=== PATIENT | female | born 1985 | race Two or more races ===

== ENCOUNTER → 2022-07-08 10:55 | Outpatient (BNVA) | payer OTHER, SELFPAY | PROVIDERS: PCP Internal Medicine; Visit Provider Internal Medicine Rheumatology | DX: M79.7 Fibromyalgia (principal); R20.2 Paresthesia of skin | CPT/HCPCS: 99212 ==

== ENCOUNTER 2023-03-30 18:24 | Inpatient (IN) | payer OTHER, SELFPAY ==
[2023-03-30 18:10] VITALS: BP 133/93; PULSE 99; RESP 16; TEMP 36.2
--- NOTE | 2023-03-30 19:18 | PC.ADMIT ---
Addendum entered by Dina Franco RN 03/30/23 19:28: PT does report a recent weight loss of approx 30 pounds due to anxiety and lack of appetite. PT reports being on Lexapro but hasn't taken it in about a month. Original Note: PT is a 37 year old female that arrived on this unit at 1810 from [facility] and was placed on 15 minute checks. Legal status: conditional voluntary. PT presented to [facility] ED for increased paranoia and non-sensible thinking. PT believes her IPAD and Iphone were hacked and people are tracking and following her. She was recently found to be on her neighbors deck at 7am and reported she thought she was at a work meeting. PT has a hx of DAVIE (opiates and cocaine) and per assessment has been in recovery for 5 years but admits to recent use of cocaine and THC which were both detected in her urine screen. PT reports no hx of psych admissions. Per assessment, pt was attending [facility] up until the summer. PT reports she is employed and has a good support system including her mother and step father with whom she resides and housing is stable. PT denies a smoking hx and refuses the flu vaccine. PT denies SI/HI AH/VH. Safe on unit.
[2023-03-31 06:00] VITALS: BP 135/93; PULSE 97; RESP 16; TEMP 36.3; O2SAT 95
[2023-03-31 08:38] LABS: Estimated Average Glucose 94 mg/dL; Hemoglobin A1c % 4.9 % (<6.0)
[2023-03-31] MEDS: hydrOXYzine HCL 25 MG TABLET PO ×2 (08:45→16:50)
[2023-03-31 08:55] LABS: Alanine Aminotransferase 11 U/L (0-31); Albumin Level 4.3 g/dL (3.5-5.0); Alkaline Phosphatase 111 U/L (39-117); Anion Gap 13 (12-20); Aspartate Amino Transferase 19 U/L (5-31); Bilirubin Total 0.4 mg/dL (0.0-1.0); Blood Urea Nitrogen 17 mg/dL (9-16); Calcium 9.9 mg/dL (8.4-10.2); Carbon Dioxide 26 mmol/L (22-29); Chloride 106 mmol/L (96-108); Cholesterol 242 mg/dL (<200); Estimated Glomerular Filt Rate > 60; Glucose Fasting 97 mg/dL (60-99); HDL Cholesterol 81 mg/dL (>40); LDL Cholesterol Calculated 146 mg/dL (<100); Magnesium 2.4 mg/dL (1.6-2.6); Potassium 4.7 mmol/L (3.3-5.1); Sodium 140 mmol/L (135-145); Total Protein 8.2 g/dL (6.5-8.0); Triglycerides 77 mg/dL (<150)
[2023-03-31 09:04] LABS: Free T4 (Free Thyroxine) 0.83 ng/dL (0.71-1.85); Thyroid Stimulating Hormone 1.04 uIU/mL (0.32-4.0)
[2023-03-31 09:21] LABS: Folate 9.4 ng/mL (> or = 4.0); Vitamin B12 866 pg/mL (200-900)
--- NOTE | 2023-03-31 09:53 | P.HPPS_ITS ---
HPI Date of Service: 03/31/23 Chief Complaint: Unspecified Schizophrenia Spectrum Sources of Information: patient interviewed, chart reviewed and crisis/core team assessment reviewed HPI Subjective Notes: Buck Warning and Conditional Voluntary Narrative: P atient?is?a?37-year-old?female?with?history?of?mild?depression/anxiety,?opioid?a nd?cocaine?abuse?who?presents?with?paranoid D elusions?and?the?face?of?1st?time?manic?episode.??Patient?reports?that?for?the?p ast?several?weeks?she?has?been?worried?about H er?iPhone?iPad?being?hacked?and?being?followed?by?unknown?people.??Patient?has?b een?thinking?she?is?getting?messages V ia?span?emails,?telling?her?to?get?out?of?the?house,?someone?following?her;?dante ent?has?been?worried?that?she?is?being?followed?as?she?drives A nd?that?people?pulling?him?next?to?her?are?staring?at?her,?and?some?how?a?part?o f?this.??At?1?point?patient?was?driving?her?car?and?thought?perhaps?someone W as?hiding?in?her?trunk.??Patient?was?at?her?house?and?feeling?she?was?being?warn ed?to?get?out?of?her?house,?walked?up?the?street, S at?on?a?neighbor's?property?who?called?911.??Patient?reports?that?about?3?weeks? ago?she?was?started?on?Lexapro?which?was?increased?to?20?mg Which?she?abruptly?stopped?which?coincided with?the?onset?of?manic?episode;?symptoms?included?little?need?for?sleep, S ignificantly?increased?libido,?racing?mind,?paranoid?thinking,?auditory?hallucin ations,?getting?messages?from?the?TV,?increased?risky Behavior (started?doing?cocaine?at?least?every?other?day?were?formally?was?only?intermitt ently?using?on?the?weekends).??Patient?says S he?slept?for?the?1st?time?last?night?and?that?this?manic?episode?seems?to?be?win ding?down.??She?said?recently?she?started?to?question A bility?to?discern?what?was?real?verse?delusional?and?began?realizing?she?was?in? fact?paranoid.??Denies?history?of?trauma.??No?SI/HI Past Psychiatric History: No?past?psychiatric?admission No?history?of?suicidality,?attempts Has?been?started?on?several?different?SSRI trials?but?only?took?for?a?week?or?not?at?all Medical Evaluation Reviewed: Hospitalist [facility] Medical History (Updated 04/01/23 @ 00:46 by Dipesh Bañuelos MD) Cocaine use disorder Cervical intraepithelial neoplasia grade 3 Narcotic addiction Chronic headaches Snoring Surgical History H/O LEEP Family History: sister: depression/anxiety Social History: Lives?with?her?mother?and?boyfriend 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 Substance History: H istory?of?opiate?addiction/dependence;?sober?for?5?years?while?on?methadone.??Go t?off?methadone?this?past?summer? History?of?daily?alcoholism;?been?sober?for?year,?drinking?only?seldomly S tarted?dabbling?with?cocaine?this?past?summer?on?the?weekends;?about?3?weeks?ago ?increased?to? every other day Trauma History: denies Diagnostics Vital Signs (24Hr): Vital Signs - 24 hr 03/30/23 18:10 03/31/23 06:00 Temperature 97.1 F 97.4 F Pulse Rate 99 97 Respiratory Rate 16 16 Blood Pressure 133/93 H 135/93 H Pulse Oximetry 95 Oxygen Delivery Method Room Air Labs 03/31/23 08:15 Labs: Laboratory Results - last 48 hr 03/31/23 03/31/23 08:15 08:16 Sodium 140 Potassium 4.7 Chloride 106 Carbon Dioxide 26 Anion Gap 13 BUN 17 H Creatinine 0.80 Estim Creat Clear Calc TNP Estimated GFR > 60 Fasting Glucose 97 Estimat Average Glucose 94 Hemoglobin A1c % 4.9 Calcium 9.9 Magnesium 2.4 Total Bilirubin 0.4 AST 19 ALT 11 Alkaline Phosphatase 111 Total Protein 8.2 H Albumin 4.3 Triglycerides 77 Cholesterol 242 H LDL Cholesterol, Calc 146 H HDL Cholesterol 81 Vitamin B12 866 Folate 9.4 TSH 1.04 Free T4 0.83 Meds/Allergies Meds Home Medications Medication Instructions Recorded Confirmed Type escitalopram oxalate 20 mg tablet 20 mg PO DAILY 03/30/23 03/30/23 History Allergies Allergies Allergy/AdvReac Type Severity Reaction Status Date / Time No Known Allergies Allergy Verified 07/08/22 11:03 Mental Status Exam Mental Status Exam Narrative: Pt is alert and oriented; behavior is hypomanic, cooperative, friendly and calm; patient is not in distress; dressed in hospital attire with unkempt hair but adequate hygiene; mood is described as good and affect exhuberent; eye contact appropriate; Speech little pressured, little loud; normal prosody; no psychomotor agitation/retardation present; thought process is organized and goal directed; Thought content is on trying to distinguish whats real from paranoia; tx; otherwise pertinent to relevant topics; some dissipating delusional, paranoid ideations; denies any SI/HI. There is no evidence of perceptual disturbance. Patients insight and judgment impaired. Assessment & Plan Assessment & Plan (1) Bipolar I disorder: Status: Acute Code(s): F31.9 - Bipolar disorder, unspecified (2) Cocaine use disorder: Status: Acute Code(s): F14.10 - Cocaine abuse, uncomplicated Plan P atient?is?a?37-year-old?female?with?history?of?mild?depression/anxiety,?opioid?a nd?cocaine?abuse?who?presents?with?paranoid Delusions?and?the?face?of?1st?time?manic?episode.? -discussed dx and pt agrees she has bipolar disorder; becoming more clear about delusions; discussed tx options - episode?seems?to?have?been?triggered?by?starting?Lexapro;?symptoms?worsened?by?c ocaine?abuse - 1st?ever?florid?manic?episode;?however?according?to?mother,?seems?to?be?history? of?shorter,?very?mild?episode -symptoms starting to subside, slept well last night; becoming more clear minding PLAN CV Q?15?minute?checks? Start?lithium?600?mg?q.h.s. Regarding [place], Risks, side-effects and benefits reviewed with pt, including, but not limited to, damage to kidneys and thyroid; pt was educated to stay hydrated, to watch for symptoms of lithium toxicity (also discussed, including but not limited to nausea, tremor, confusion) and the need to stay away from OTC NSAIDs (specifics reviewed) aside from Tylenol. Patient educated on: diagnosis, medication risk/benefits, substance abuse and therapeutic strategies Informed Consent: understands Reason for continued inpatient stay Substantial Risk for: rapid decompensation Statement Statement: I have reviewed the history and physical and performed a pertinent examination on my patient. No changes have occurred unless specified. If the History and Physical was not performed prior to admission, the Hospitalist's service will be consulted for completing the admission physical. Time Spent With Patient Time: Total time managing care of this patient today ____ minutes.
[2023-03-31] MEDS: Lithium Carbonate ER 300 MG TABLET.ER PO ×2 (16:49→20:20)
--- NOTE | 2023-03-31 17:23 | P.CONHOSP_ITS ---
History of Present Illness Data of Consult Service Date: 03/31/23 Primary Care Provider: Unknown Physician HPI Reason for consult: Admission H&P Pt is a 37-year-old female with a PMH significant for?opioid and cocaine use disorder, and mild depression/anxiety who is admitted to [facility] unit for paranoia and delusions in the setting of a first-time manic episode. Patient apparently had been worrying about having her electronic devices hacked and being followed around by unknown people. Medical consult for admission H&P. ?Patient has no acute medical concerns at this time. Denies fever, chills, nausea, vomiting, abdominal pain. No change to bowel or bladder habits. Denies chest pain/pressure, palpitations. No shortness of breath. Denies headache, acute vision changes. Labs reviewed, grossly unremarkable. Review of Systems 2 Review of Systems: Patient has no acute medical complaints at this time [facility] Medical History Cocaine use disorder Cervical intraepithelial neoplasia grade 3 Narcotic addiction Chronic headaches Snoring Family History Maternal Grandmother Ovarian cancer Maternal Grandfather Dementia Paternal Grandfather CAD (coronary artery disease) Paternal Aunt Rheumatoid arthritis Surgical History H/O LEEP Social History Household Members: Family Housing: House Do you presently have visiting nurse or other home services: No Alcohol intake: current Patient Tobacco Use Status: Never used Tobacco e-Cigarette/Vaping Use: Never Used Use of substances other than those prescribed or required for medical reasons: Yes Substance Use Type: Crack/Cocaine and Marijuana Substance Use Frequency: Occasionally Last Used Substance: Just Prior to Admission Currently Displaying Signs/Symptoms of Drug Intoxication Withdrawal: No Any prior treatment program specific to substance use: Yes (Methadone clinic in the past) Have you been hit, kicked, punched, or otherwise hurt by someone within the past year? If so, by whom?: No Do you feel safe in your current relationship?: No Current Relationship Is there a partner from a previous relationship who is making you feel unsafe now?: No Are you made to feel afraid or neglected: No Advance Directives: No Advance Directives Information Provided: No Do you have thoughts of harming others: None Do you have a plan to hurt others: No Plan Recently lost weight without trying: Yes How much weight loss: 34pounds or more Eating poorly because of decreased appetite: Yes Nutrition screen score: 7 Nutrition Risks: Poor intake 0-25% >4 days Patient : No : No Poor oral hygiene: No service: No Current occupational status: employed Current occupation: benefits sales consultant Sexual orientation: Straight/Heterosexual Meds Allergies Allergy/AdvReac Type Severity Reaction Status Date / Time No Known Allergies Allergy Verified 07/08/22 11:03 Active Medications: Current Medications Acetaminophen (Acetaminophen 325 Mg Tablet) 650 mg PO Q6H PRN PRN Reason: Headache/Pain Mild Scale (1-3) Al Hydroxide/Mg Hydroxide (Magnesium Hydrox/Alum Hydrox 30 Ml Oral.Susp) 30 ml PO Q6H PRN PRN Reason: Heartburn/Nausea Hydroxyzine HCl (Hydroxyzine Hcl 25 Mg Tablet) 25 mg PO Q6H PRN PRN Reason: Anxiety/insomnia Last Admin: 03/31/23 16:50 Dose: 25 mg [place] Carbonate ([place] Carbonate Er 300 Mg Tablet.Er) 300 mg PO BEDTIME SHAUNA Stop: 03/31/23 23:00 [place] Carbonate ([place] Carbonate Er 300 Mg Tablet.Er) 600 mg PO BEDTIME SHAUNA Magnesium Hydroxide (Milk Of Magnesia 30 Ml Oral.Susp) 30 ml PO DAILY PRN PRN Reason: Constipation Trazodone HCl (Trazodone Hcl 50 Mg Tablet) 50 mg PO BEDTIME MRX1 PRN PRN Reason: Insomnia Home Medications Medication Instructions Recorded Confirmed Last Taken Type escitalopram oxalate 20 mg tablet 20 mg PO DAILY 03/30/23 03/30/23 Unknown History Physical Exam 2 Vital Signs and Narrative: Vital Signs: Last Vital Signs Temp 97.4 F 03/31/23 06:00 Pulse 97 03/31/23 06:00 Resp 16 03/31/23 06:00 BP 135/93 H 03/31/23 06:00 Pulse Ox 95 03/31/23 06:00 O2 Del Method Room Air 03/31/23 06:00 Constitutional: Alert, in no acute distress. Mental Status: Oriented to person, place and time. Eyes: Pupils are equal, round, and reactive to light. Ear, Nose, and Throat: Oropharynx clear, mucous membranes moist. Ears and nose without deformities. Trachea midline. Respiratory: Clear to auscultation bilaterally. No wheezing, rales, or rhonchi. Cardiovascular: S1, S2 regular. No murmurs, rubs, or gallops. Gastrointestinal: Abdomen soft, non-tender, non-distended. Normal bowel sounds. Neurologic: Cranial nerves II-XII are grossly intact bilaterally. No focal neurological deficits. Moves all extremities spontaneously. Skin: Warm, dry. Musculoskeletal: No cyanosis or clubbing. Extremities: No edema. Results Labs 03/31/23 08:15 Labs: Laboratory Results - last 24 hr 03/31/23 03/31/23 08:15 08:16 Anion Gap 13 Estim Creat Clear Calc TNP Estimated GFR > 60 Fasting Glucose 97 Estimat Average Glucose 94 Hemoglobin A1c % 4.9 Calcium 9.9 Magnesium 2.4 Total Bilirubin 0.4 AST 19 ALT 11 Alkaline Phosphatase 111 Total Protein 8.2 H Albumin 4.3 Triglycerides 77 Cholesterol 242 H LDL Cholesterol, Calc 146 H HDL Cholesterol 81 Vitamin B12 866 Folate 9.4 TSH 1.04 Free T4 0.83 Assessment and Plan (1) Medical clearance for psychiatric admission: Status: Acute Plan Pt is a 37-year-old female with a PMH significant for?opioid and cocaine use disorder, and mild depression/anxiety who is admitted to [facility] unit for paranoia and delusions in the setting of a first-time manic episode. Patient apparently had been worrying about having her electronic devices hacked and being followed around by unknown people. Medical consult for admission H&P. ?Patient has no acute medical concerns at this time. Mood disorder Plan as per Psychiatry Patient otherwise has no chronic medical conditions or acute medical complaints. Thank you for allowing us to participate in the care of this patient. Signing off at this time. Please let us know if there are any acute complaints or questions.
[2023-03-31 18:00] VITALS: BP 134/91; PULSE 97; TEMP 35.8; O2SAT 100
[2023-04-01] MEDS: hydrOXYzine HCL 25 MG TABLET PO (06:45)
[2023-04-01 08:15] VITALS: BP 130/89; PULSE 89; RESP 16; TEMP 36.2; O2SAT 100
--- NOTE | 2023-04-01 10:07 | HO.PSYCHPN ---
Subjective Subjective Date of Service: 04/01/23 Reason For Visit: Unspecified Schizophrenia Spectrum Subjective Notes: 3 Day Interim History: Reviewed with . Pt presents friendly, cooperative, with rapid speech. Pt stated, I'm feeling good other than being anxious. I'm sleeping and eating great. I plan on going to a program for substance abuse after here . Pt requested increase in hydroxyzine. Medication Compliance: Yes Side effects from medications: No Attending Groups: Yes Review of Systems Constitutional: Reports as per HPI Eyes: Reports as per HPI Reports as per HPI Cardiovascular: Reports as per HPI Respiratory: Reports as per HPI Gastrointestinal: Reports as per HPI Genitourinary: Reports as per HPI Musculoskeletal: Reports as per HPI Skin/Breast: Reports as per HPI Reports as per HPI Psychiatric: Reports as per HPI Endocrine: Reports as per HPI Hematologic/Lymphatic: Reports as per HPI Allergic/Immunologic: Reports as per HPI Mental Status Exam Mental Status Exam Narrative: Pt is alert and oriented; behavior is cooperative, friendly; dressed in casual attire; mood is described as anxious ; eye contact appropriate; Speech is rapid; no psychomotor agitation/retardation present; thought process is organized and goal directed; Thought content is on tx; otherwise pertinent to relevant topics and without any delusional content, paranoid ideations or grandiosity; denies SI/HI. There is no evidence of perceptual disturbance. Patients insight and judgment are fair. Diagnostics Vital Signs (24Hr): Vital Signs - 24 hr 03/31/23 18:00 04/01/23 08:15 Temperature 96.4 F L 97.2 F Pulse Rate 97 89 Respiratory Rate 16 Blood Pressure 134/91 H 130/89 Pulse Oximetry 100 100 Oxygen Delivery Method Room Air Room Air Labs 03/31/23 08:15 Labs: Laboratory Results - last 48 hr 03/31/23 03/31/23 08:15 08:16 Sodium 140 Potassium 4.7 Chloride 106 Carbon Dioxide 26 Anion Gap 13 BUN 17 H Creatinine 0.80 Estim Creat Clear Calc TNP Estimated GFR > 60 Fasting Glucose 97 Estimat Average Glucose 94 Hemoglobin A1c % 4.9 Calcium 9.9 Magnesium 2.4 Total Bilirubin 0.4 AST 19 ALT 11 Alkaline Phosphatase 111 Total Protein 8.2 H Albumin 4.3 Triglycerides 77 Cholesterol 242 H LDL Cholesterol, Calc 146 H HDL Cholesterol 81 Vitamin B12 866 Folate 9.4 TSH 1.04 Free T4 0.83 Medications Medications Current Medications Acetaminophen (Acetaminophen 325 Mg Tablet) 650 mg PO Q6H PRN PRN Reason: Headache/Pain Mild Scale (1-3) Al Hydroxide/Mg Hydroxide (Magnesium Hydrox/Alum Hydrox 30 Ml Oral.Susp) 30 ml PO Q6H PRN PRN Reason: Heartburn/Nausea Hydroxyzine HCl (Hydroxyzine Hcl 25 Mg Tablet) 25 mg PO Q6H PRN PRN Reason: Anxiety/insomnia Last Admin: 04/01/23 06:45 Dose: 25 mg [place] Carbonate ([place] Carbonate Er 300 Mg Tablet.Er) 600 mg PO BEDTIME SHAUNA Magnesium Hydroxide (Milk Of Magnesia 30 Ml Oral.Susp) 30 ml PO DAILY PRN PRN Reason: Constipation Trazodone HCl (Trazodone Hcl 50 Mg Tablet) 50 mg PO BEDTIME MRX1 PRN PRN Reason: Insomnia Allergies Allergies Allergy/AdvReac Type Severity Reaction Status Date / Time No Known Allergies Allergy Verified 07/08/22 11:03 Assessment & Plan Assessment & Plan (1) Bipolar I disorder: Status: Acute Code(s): F31.9 - Bipolar disorder, unspecified (2) Cocaine use disorder: Status: Acute Code(s): F14.10 - Cocaine abuse, uncomplicated Plan Patient?is?a?37-year-old?female?with?history?of?mild?depression/anxiety,?opioid?and?cocaine?abuse?who?presents?with?paranoid Delusions?and?the?face?of?1st?time?manic?episode.? -discussed dx and pt agrees she has bipolar disorder; becoming more clear about delusions; discussed tx options -episode?seems?to?have?been?triggered?by?starting?Lexapro;?symptoms?worsened?by?cocaine?abuse -1st?ever?florid?manic?episode;?however?according?to?mother,?seems?to?be?history?of?shorter,?very?mild?episode -symptoms starting to subside, slept well last night; becoming more clear minding PLAN CV Q?15?minute?checks? Start?lithium?600?mg?q.h.s. Regarding [place], Risks, side-effects and benefits reviewed with pt, including, but not limited to, damage to kidneys and thyroid; pt was educated to stay hydrated, to watch for symptoms of lithium toxicity (also discussed, including but not limited to nausea, tremor, confusion) and the need to stay away from OTC NSAIDs (specifics reviewed) aside from Tylenol. 04/01: Pleasant, cooperative, rapid speech. Pt requested increase in hydroxyzine for her anxiety. Increased hydroxyzine to 50mg PO Q6hr PRN anxiety. Patient educated on: diagnosis, medication risk/benefits and therapeutic strategies Informed Consent: understands Reason for continued inpatient stay Substantial Risk for: med/psych decompensation Time Spent With Patient Time: Total time managing care of this patient today _30___ minutes.
[2023-04-01] MEDS: hydrOXYzine HCL 50 MG TABLET PO ×2 (13:08→20:55)
[2023-04-01] MEDS: Nicotine Polacrilex Lozenge 4 MG LOZENGE BUCCAL ×2 (14:39→18:13)
[2023-04-01 18:00] VITALS: BP 121/84; PULSE 118; TEMP 36.5; O2SAT 99
[2023-04-01] MEDS: Lithium Carbonate ER 300 MG TABLET.ER 600 MG PO (20:54)
[2023-04-01] MEDS: traZODone HCL 50 MG TABLET PO (22:03)
[2023-04-02] MEDS: traZODone HCL 50 MG TABLET PO ×3 (00:09→23:30)
[2023-04-02] MEDS: hydrOXYzine HCL 50 MG TABLET PO ×3 (08:08→21:04)
[2023-04-02 09:07] VITALS: BP 136/64; PULSE 79; RESP 16; TEMP 36.1; O2SAT 99
[2023-04-02] MEDS: Nicotine Polacrilex Lozenge 4 MG LOZENGE BUCCAL (09:11)
--- NOTE | 2023-04-02 12:05 | P.PNPSI_ITS ---
Subjective Subjective Date of Service: 04/02/23 Reason For Visit: Unspecified Schizophrenia Spectrum Subjective Notes: 3 Day Guardianship: No Medical Problems Affecting Mental Status: No Interim History: Reports some sleep disturbance. Feels this was due to stress and anxiety. States her mind was busy yesterday but less so today. Also endorsing paranoia. Has insight that this might be caused by cocaine use. Medication Compliance: Yes Side effects from medications: No Attending Groups: Intermittent Review of Systems Acute medical concerns: No Medical Review of Systems: unchanged Mental Status Exam Mental Status Exam Patient Appearance: Unkempt Patient Orientation: Person, Place, Time and Situation Level of Consciousness: Alert Patient Behavior: Appropriate Mood Description: Anxious Affect Description: Calm Patient Cognition Impaired: No Ability to Follow Directions: Excellent Speech Pattern: Clear Memory Description: Intact Hallucinations: None Delusions: Paranoid Ideation Thought Process: Linear Depressive Symptoms: Increased Anxiety Judgement: Fair Diagnostics Vital Signs (24Hr): Vital Signs - 24 hr 04/01/23 18:00 04/02/23 09:07 Temperature 97.7 F 96.9 F Pulse Rate 118 H 79 Respiratory Rate 16 Blood Pressure 121/84 136/64 Pulse Oximetry 99 99 Oxygen Delivery Method Room Air Room Air Labs 03/31/23 08:15 Medications Medications Current Medications Acetaminophen (Acetaminophen 325 Mg Tablet) 650 mg PO Q6H PRN PRN Reason: Headache/Pain Mild Scale (1-3) Al Hydroxide/Mg Hydroxide (Magnesium Hydrox/Alum Hydrox 30 Ml Oral.Susp) 30 ml PO Q6H PRN PRN Reason: Heartburn/Nausea Hydroxyzine HCl (Hydroxyzine Hcl 50 Mg Tablet) 50 mg PO Q6H PRN PRN Reason: Anxiety/insomnia Last Admin: 04/02/23 08:08 Dose: 50 mg [place] Carbonate ([place] Carbonate Er 300 Mg Tablet.Er) 600 mg PO BEDTIME SHAUNA Last Admin: 04/01/23 20:54 Dose: 600 mg Magnesium Hydroxide (Milk Of Magnesia 30 Ml Oral.Susp) 30 ml PO DAILY PRN PRN Reason: Constipation Nicotine Polacrilex (Nicotine Polacrilex Lozenge 4 Mg Lozenge) 4 mg [place] Q2H PRN PRN Reason: Nicotine Cravings Last Admin: 04/02/23 09:11 Dose: 4 mg Trazodone HCl (Trazodone Hcl 50 Mg Tablet) 50 mg PO BEDTIME MRX1 PRN PRN Reason: Insomnia Last Admin: 04/02/23 00:09 Dose: 50 mg Allergies Allergies Allergy/AdvReac Type Severity Reaction Status Date / Time No Known Allergies Allergy Verified 07/08/22 11:03 Assessment & Plan Assessment & Plan (1) Medical clearance for psychiatric admission: Status: Acute Code(s): Z00.8 - Encounter for other general examination Plan Pt is a 37-year-old female with a PMH significant for?opioid and cocaine use disorder, and mild depression/anxiety who is admitted to [facility] unit for paranoia and delusions in the setting of a first-time manic episode. Patient apparently had been worrying about having her electronic devices hacked and being followed around by unknown people. Medical consult for admission H&P. ?Patient has no acute medical concerns at this time. Mood disorder Started on [place], no changes Reason for continued inpatient stay Substantial Risk for: rapid decompensation Time Spent With Patient Time: Total time managing care of this patient today ____ minutes.
[2023-04-02 16:40] VITALS: BP 129/78; PULSE 98; RESP 16; TEMP 36.7; O2SAT 99
[2023-04-02] MEDS: Lithium Carbonate ER 300 MG TABLET.ER 600 MG PO (21:04)
[2023-04-03] MEDS: hydrOXYzine HCL 50 MG TABLET PO ×3 (06:21→20:41)
[2023-04-03] MEDS: Acetaminophen 325 MG TABLET 650 MG PO (06:21)
[2023-04-03] MEDS: Nicotine Polacrilex Lozenge 4 MG LOZENGE BUCCAL ×5 (06:22→22:41)
--- NOTE | 2023-04-03 07:02 | P.PNPSI_ITS ---
Subjective Subjective Date of Service: 04/03/23 Reason For Visit: Unspecified Schizophrenia Spectrum Subjective Notes: 3 Day Healthcare Proxy: No Guardianship: No Medical Problems Affecting Mental Status: No Interim History: Reports some initial insomnia. Eating OK. Social in the milieu. Reports mood is good but then asking for higher dose of meds for anxiety. Took several doses of atarax. No paranoid concerns. States she is preparing for my next transfer on Tuesday. Medication Compliance: Yes Side effects from medications: No Attending Groups: Intermittent Review of Systems Acute medical concerns: No Medical Review of Systems: unchanged Mental Status Exam Mental Status Exam Patient Appearance: Unkempt Patient Orientation: Person, Place, Time and Situation Level of Consciousness: Alert Patient Behavior: Appropriate Diagnostics Vital Signs (24Hr): Vital Signs - 24 hr 04/02/23 09:07 04/02/23 16:40 Temperature 96.9 F 98.1 F Pulse Rate 79 98 Respiratory Rate 16 16 Blood Pressure 136/64 129/78 Pulse Oximetry 99 99 Oxygen Delivery Method Room Air Room Air Labs 03/31/23 08:15 Medications Medications Current Medications Acetaminophen (Acetaminophen 325 Mg Tablet) 650 mg PO Q6H PRN PRN Reason: Headache/Pain Mild Scale (1-3) Last Admin: 04/03/23 06:21 Dose: 650 mg Al Hydroxide/Mg Hydroxide (Magnesium Hydrox/Alum Hydrox 30 Ml Oral.Susp) 30 ml PO Q6H PRN PRN Reason: Heartburn/Nausea Hydroxyzine HCl (Hydroxyzine Hcl 50 Mg Tablet) 50 mg PO Q6H PRN PRN Reason: Anxiety/insomnia Last Admin: 04/03/23 06:21 Dose: 50 mg [place] Carbonate ([place] Carbonate Er 300 Mg Tablet.Er) 600 mg PO BEDTIME SHAUNA Last Admin: 04/02/23 21:04 Dose: 600 mg Magnesium Hydroxide (Milk Of Magnesia 30 Ml Oral.Susp) 30 ml PO DAILY PRN PRN Reason: Constipation Nicotine Polacrilex (Nicotine Polacrilex Lozenge 4 Mg Lozenge) 4 mg BUCCAL Q2H PRN PRN Reason: Nicotine Cravings Last Admin: 04/03/23 06:22 Dose: 4 mg Trazodone HCl (Trazodone Hcl 50 Mg Tablet) 50 mg PO BEDTIME MRX1 PRN PRN Reason: Insomnia Last Admin: 04/02/23 23:30 Dose: 50 mg Allergies Allergies Allergy/AdvReac Type Severity Reaction Status Date / Time No Known Allergies Allergy Verified 07/08/22 11:03 Assessment & Plan Assessment & Plan (1) Medical clearance for psychiatric admission: Status: Acute Code(s): Z00.8 - Encounter for other general examination Plan Pt is a 37-year-old female with a PMH significant for?opioid and cocaine use disorder, and mild depression/anxiety who is admitted to [facility] for paranoia and delusions in the setting of a first-time manic episode. Patient apparently had been worrying about having her electronic devices hacked and being followed around by unknown people. Medical consult for admission H&P. ?Patient has no acute medical concerns at this time. Mood disorder Started on [place], no changes 04/03: Consider adding low dose seroquel for anxiety, insomnia and tendency to paranoia Reason for continued inpatient stay Substantial Risk for: inability to function Time Spent With Patient Time: Total time managing care of this patient today ____ minutes.
[2023-04-03 08:09] VITALS: BP 121/59; PULSE 95; RESP 16; TEMP 36.6; O2SAT 100
[2023-04-03] MEDS: guaiFENesin LA 600 MG TAB.ER.12H PO (09:35)
[2023-04-03] MEDS: Loratadine 10 MG TABLET PO (09:35)
[2023-04-03] MEDS: Sodium Chloride 0.65 % Nasal 44 ML SPRBTL 1 SPRAY NOSTRIL-B ×3 (10:37→22:10)
[2023-04-03 17:09] VITALS: BP 130/66; PULSE 100; RESP 17; TEMP 36.6; O2SAT 100
[2023-04-03] MEDS: Lithium Carbonate ER 300 MG TABLET.ER 600 MG PO (20:39)
[2023-04-03] MEDS: traZODone HCL 50 MG TABLET PO ×2 (22:05→23:38)
[2023-04-04] MEDS: Nicotine Polacrilex Lozenge 4 MG LOZENGE BUCCAL ×5 (06:10→18:50)
[2023-04-04] MEDS: hydrOXYzine HCL 50 MG TABLET PO ×3 (06:10→18:50)
[2023-04-04] MEDS: Sodium Chloride 0.65 % Nasal 44 ML SPRBTL 1 SPRAY NOSTRIL-B ×4 (08:20→18:50)
[2023-04-04] MEDS: Loratadine 10 MG TABLET PO (08:20)
[2023-04-04 08:25] VITALS: BP 121/78; PULSE 95; RESP 18; TEMP 36.6; O2SAT 100
[2023-04-04 08:37] LABS: Lithium 0.34 mmol/L (0.60-1.20)
--- NOTE | 2023-04-04 09:47 | P.PNPSI_ITS ---
Subjective Subjective Date of Service: 04/04/23 Reason For Visit: Unspecified Schizophrenia Spectrum Interim History: met with patient; discussed with team Patient reports feeling much better. Has good insight into past paranoid/delusional thinking and understands that none of this was real. Further reflection she can see there a possible mild hypomanic episodes that she thinks she probably hid under her naturally outgoing, effusive personality. Patient tolerating medication well and reports sleeping and eating well. She very much wants to go to a substance abuse program which her family is helping set up. Discussed anxiety which remains and she will try clonidine to see if that helps in addition to hydroxyzine. Patient remains engaged in treatment, attending groups, pleasant to work with and forthcoming in 1 on 1 sessions and appropriate with peers and staff, in good behavioral and impulse control. Mental Status Exam Mental Status Exam Narrative: Pt is alert and oriented; behavior is cooperative, friendly and calm; patient is not in distress; dressed in casual attire, well groomed; mood is described as good and affect congruent, appropriate, calm; eye contact appropriate; Speech normal rate, volume and prosody; no psychomotor agitation/retardation present; thought process is organized, linear and goal directed; Thought content is on treatment, understanding diagnosis, pursuing sobriety; otherwise pertinent to relevant topics; no delusional or paranoid ideations; denies any SI/HI. There is no evidence of perceptual disturbance. Patients insight and judgment good. Diagnostics Vital Signs (24Hr): Vital Signs - 24 hr 04/03/23 17:09 04/04/23 08:25 Temperature 97.8 F 97.8 F Pulse Rate 100 95 Respiratory Rate 17 18 Blood Pressure 130/66 121/78 Pulse Oximetry 100 100 Oxygen Delivery Method Room Air Room Air Labs 03/31/23 08:15 Labs: Laboratory Results - last 48 hr 04/04/23 08:17 [place] 0.34 L Medications Medications Current Medications Acetaminophen (Acetaminophen 325 Mg Tablet) 650 mg PO Q6H PRN PRN Reason: Headache/Pain Mild Scale (1-3) Last Admin: 04/03/23 06:21 Dose: 650 mg Al Hydroxide/Mg Hydroxide (Magnesium Hydrox/Alum Hydrox 30 Ml Oral.Susp) 30 ml PO Q6H PRN PRN Reason: Heartburn/Nausea Guaifenesin (Guaifenesin La 600 Mg Tab.Er.12h) 600 mg PO BID PRN PRN Reason: Congestion Last Admin: 04/03/23 09:35 Dose: 600 mg Hydroxyzine HCl (Hydroxyzine Hcl 50 Mg Tablet) 50 mg PO Q6H PRN PRN Reason: Anxiety/insomnia Last Admin: 04/04/23 06:10 Dose: 50 mg [place] Carbonate ([place] Carbonate Er 300 Mg Tablet.Er) 600 mg PO BEDTIME SHAUNA Last Admin: 04/03/23 20:39 Dose: 600 mg Loratadine (Loratadine 10 Mg Tablet) 10 mg PO DAILY SHAUNA Last Admin: 04/04/23 08:20 Dose: 10 mg Magnesium Hydroxide (Milk Of Magnesia 30 Ml Oral.Susp) 30 ml PO DAILY PRN PRN Reason: Constipation Nicotine Polacrilex (Nicotine Polacrilex Lozenge 4 Mg Lozenge) 4 mg BUCCAL Q2H PRN PRN Reason: Nicotine Cravings Last Admin: 04/04/23 08:22 Dose: 4 mg Sodium Chloride (Sodium Chloride 0.65 % Nasal 44 Ml Sprbtl) 1 spray NOSTRIL-B Q1H PRN PRN Reason: Congestion Last Admin: 04/04/23 08:20 Dose: 1 spray Trazodone HCl (Trazodone Hcl 50 Mg Tablet) 50 mg PO BEDTIME MRX1 PRN PRN Reason: Insomnia Last Admin: 04/03/23 23:38 Dose: 50 mg Allergies Allergies Allergy/AdvReac Type Severity Reaction Status Date / Time No Known Allergies Allergy Verified 07/08/22 11:03 Assessment & Plan Assessment & Plan (1) Medical clearance for psychiatric admission: Status: Acute Code(s): Z00.8 - Encounter for other general examination Plan P atient?is?a?37-year-old?female?with?history?of?mild?depression/anxiety,?opioid?a nd?cocaine?abuse?who?presents?with?paranoid Delusions?and?the?face?of?1st?time?manic?episode and cocaine abuse.? -discussed dx and pt agrees she has bipolar disorder; becoming more clear about delusions; discussed tx options - episode?seems?to?have?been?triggered?by?starting?Lexapro;?symptoms?worsened?by?c ocaine?abuse - 1st?ever?florid?manic?episode;?however?according?to?mother,?seems?to?be?history? of?shorter,?very?mild?episode -symptoms starting to subside, slept well last night; becoming more clear minding Hospital course: 04/03: Consider adding low dose seroquel for anxiety, insomnia and tendency to paranoia 04/04 Patient reports feeling much better. Has good insight into past paranoid/delusional thinking and understands that none of this was real. Further reflection she can see there a possible mild hypomanic episodes that she thinks she probably hid under her naturally outgoing, effusive personality. Patient tolerating medication well and reports sleeping and eating well. She very much wants to go to a substance abuse program which her family is helping set up. Discussed anxiety which remains and she will try clonidine to see if that helps in addition to hydroxyzine. Patient remains engaged in treatment, attending groups, pleasant to work with and forthcoming in 1 on 1 sessions and appropriate with peers and staff, in good behavioral and impulse control. PLAN CV (retracted 3 day) Q?15?minute?checks? Continue lithium?600?mg?q.h.s.; tolerating well Will reach get lithium level since blood draw was a little premature Adding clonidine p.r.n. for anxiety Will continue to help patient in pursuit of outpatient substance abuse program Reviewed medications risks/side effects which patient understands and with which agrees to continue Regarding [place], Risks, side-effects and benefits reviewed with pt, including, but not limited to, damage to kidneys and thyroid; pt was educated to stay hydrated, to watch for symptoms of lithium toxicity (also discussed, including but not limited to nausea, tremor, confusion) and the need to stay away from OTC NSAIDs (specifics reviewed) aside from Tylenol. Patient educated on: diagnosis, medication risk/benefits, substance abuse and therapeutic strategies Informed Consent: understands Reason for continued inpatient stay Substantial Risk for: stable for discharge Time Spent With Patient Time: Total time managing care of this patient today ____ minutes.
[2023-04-04] MEDS: cloNIDine HCL 0.1 MG TABLET PO ×2 (11:04→15:46)
[2023-04-04] MEDS: Nicotine 14 MG PATCH.TD24 TRANSDERMA (11:04)
[2023-04-04 15:40] VITALS: BP 121/72; PULSE 104; RESP 18; TEMP 36.8
[2023-04-04] MEDS: guaiFENesin LA 600 MG TAB.ER.12H PO (15:46)
[2023-04-04 18:00] VITALS: BP 121/72; PULSE 104; RESP 16; TEMP 36.8; O2SAT 96
[2023-04-04] MEDS: Lithium Carbonate ER 300 MG TABLET.ER 600 MG PO (20:24)
[2023-04-04] MEDS: traZODone HCL 50 MG TABLET PO ×2 (22:27→23:27)
[2023-04-04] MEDS: Magnesium Hydrox/Alum Hydrox 30 ML ORAL.SUSP PO (23:15)
[2023-04-05] MEDS: Loratadine 10 MG TABLET PO (07:56)
[2023-04-05] MEDS: Sodium Chloride 0.65 % Nasal 44 ML SPRBTL 1 SPRAY NOSTRIL-B ×2 (08:24→15:47)
[2023-04-05] MEDS: hydrOXYzine HCL 50 MG TABLET PO ×3 (08:24→23:14)
[2023-04-05] MEDS: cloNIDine HCL 0.1 MG TABLET PO (08:26)
[2023-04-05] MEDS: guaiFENesin LA 600 MG TAB.ER.12H PO (08:26)
[2023-04-05 08:45] VITALS: BP 125/87; PULSE 84; RESP 16; TEMP 36.5; O2SAT 99
[2023-04-05] MEDS: Nicotine 14 MG PATCH.TD24 TRANSDERMA (08:47)
--- NOTE | 2023-04-05 09:49 | P.PNPSI_ITS ---
Subjective Subjective Date of Service: 04/05/23 Reason For Visit: Unspecified Schizophrenia Spectrum Interim History: met with pt; discussed with team Patient reports doing overall well. Continues to have anxiety and not sure that clonidine is helping that much; also not sure if trazodone is helping that much. Discussed lithium and subtherapeutic level. Given continued anxiety and some trouble sleeping, patient agreed to increase it to 900 mg. If she still can not sleep she will try increased dose of trazodone. Patient shared some of the struggles she has at home, feeling that everyone is always talking about her problems, that is the main topic of conversation all the time and that he gets overwhelming and can be belittling. No one else has to sit at a table where everyone talks about just their problems over and over... That said, she knows her family loves her and is concerned and anxious about her overcoming addiction, even if sometimes they can be misinformed on how to be helpful. Patient very much hoping to get into longer term program substance abuse and discussed options. Remains very engaged in treatment, forthcoming in 1 on 1 sessions, attending groups, appropriate with peers and staff and in good behavioral and impulse control. Mental Status Exam Mental Status Exam Narrative: Pt is alert and oriented; behavior is cooperative, friendly and calm; patient is not in distress; dressed in casual attire, well groomed; mood is described as good and affect congruent, appropriate, calm; eye contact appropriate; Speech normal rate, volume and prosody; no psychomotor agitation/retardation present; thought process is organized, linear and goal directed; Thought content is on treatment, understanding diagnosis, pursuing sobriety; otherwise pertinent to relevant topics; no delusional or paranoid ideations; denies any SI/HI. There is no evidence of perceptual disturbance. Patients insight and judgment good. Diagnostics Vital Signs (24Hr): Vital Signs - 24 hr 04/04/23 15:40 04/04/23 18:00 04/05/23 08:45 Temperature 98.3 F 98.3 F 97.7 F Pulse Rate 104 H 104 H 84 Respiratory Rate 18 16 16 Blood Pressure 121/72 121/72 125/87 Pulse Oximetry 96 99 Oxygen Delivery Method Room Air Room Air Labs 03/31/23 08:15 Labs: Laboratory Results - last 48 hr 04/04/23 08:17 [place] 0.34 L Medications Medications Current Medications Acetaminophen (Acetaminophen 325 Mg Tablet) 650 mg PO Q6H PRN PRN Reason: Headache/Pain Mild Scale (1-3) Last Admin: 04/03/23 06:21 Dose: 650 mg Al Hydroxide/Mg Hydroxide (Magnesium Hydrox/Alum Hydrox 30 Ml Oral.Susp) 30 ml PO Q6H PRN PRN Reason: Heartburn/Nausea Last Admin: 04/04/23 23:15 Dose: 30 ml Clonidine HCl (Clonidine Hcl 0.1 Mg Tablet) 0.1 mg PO Q4H PRN; Protocol PRN Reason: anxiety Last Admin: 04/05/23 08:26 Dose: 0.1 mg Guaifenesin (Guaifenesin La 600 Mg Tab.Er.12h) 600 mg PO BID PRN PRN Reason: Congestion Last Admin: 04/05/23 08:26 Dose: 600 mg Hydroxyzine HCl (Hydroxyzine Hcl 50 Mg Tablet) 50 mg PO Q6H PRN PRN Reason: Anxiety/insomnia Last Admin: 04/05/23 08:24 Dose: 50 mg [place] Carbonate ([place] Carbonate Er 300 Mg Tablet.Er) 600 mg PO BEDTIME SHAUNA Last Admin: 04/04/23 20:24 Dose: 600 mg Loratadine (Loratadine 10 Mg Tablet) 10 mg PO DAILY SHAUNA Last Admin: 04/05/23 07:56 Dose: 10 mg Magnesium Hydroxide (Milk Of Magnesia 30 Ml Oral.Susp) 30 ml PO DAILY PRN PRN Reason: Constipation Nicotine (Nicotine 14 Mg Patch.Td24) 14 mg TRANSDERMA DAILY PRN PRN Reason: smoking cessation Last Admin: 04/05/23 08:47 Dose: 14 mg Nicotine Polacrilex (Nicotine Polacrilex 2 Mg Gum) 4 mg BUCCAL Q2H PRN PRN Reason: Nicotine Cravings Sodium Chloride (Sodium Chloride 0.65 % Nasal 44 Ml Sprbtl) 1 spray NOSTRIL-B Q1H PRN PRN Reason: Congestion Last Admin: 04/05/23 08:24 Dose: 1 spray Trazodone HCl (Trazodone Hcl 50 Mg Tablet) 50 mg PO BEDTIME MRX1 PRN PRN Reason: Insomnia Last Admin: 04/04/23 23:27 Dose: 50 mg Allergies Allergies Allergy/AdvReac Type Severity Reaction Status Date / Time No Known Allergies Allergy Verified 07/08/22 11:03 Assessment & Plan Assessment & Plan (1) Medical clearance for psychiatric admission: Status: Acute Code(s): Z00.8 - Encounter for other general examination Plan P atient?is?a?37-year-old?female?with?history?of?mild?depression/anxiety,?opioid?a nd?cocaine?abuse?who?presents?with?paranoid Delusions?and?the?face?of?1st?time?manic?episode and cocaine abuse.? -discussed dx and pt agrees she has bipolar disorder; becoming more clear about delusions; discussed tx options - episode?seems?to?have?been?triggered?by?starting?Lexapro;?symptoms?worsened?by?c ocaine?abuse - 1st?ever?florid?manic?episode;?however?according?to?mother,?seems?to?be?history? of?shorter,?very?mild?episode -symptoms starting to subside, slept well last night; becoming more clear minding Hospital course: 04/03: Consider adding low dose seroquel for anxiety, insomnia and tendency to paranoia 04/04 Patient reports feeling much better. Has good insight into past paranoid/delusional thinking and understands that none of this was real. Further reflection she can see there a possible mild hypomanic episodes that she thinks she probably hid under her naturally outgoing, effusive personality. Patient tolerating medication well and reports sleeping and eating well. She very much wants to go to a substance abuse program which her family is helping set up. Discussed anxiety which remains and she will try clonidine to see if that helps in addition to hydroxyzine. Patient remains engaged in treatment, attending groups, pleasant to work with and forthcoming in 1 on 1 sessions and appropriate with peers and staff, in good behavioral and impulse control. 04/05Patient reports doing overall well. Continues to have anxiety and not sure that clonidine is helping that much; also not sure if trazodone is helping that much. Discussed lithium and subtherapeutic level. Given continued anxiety and some trouble sleeping, patient agreed to increase it to 900 mg. If she still can not sleep she will try increased dose of trazodone. Patient shared some of the struggles she has at home, feeling that everyone is always talking about her problems, that is the main topic of conversation all the time and that he gets overwhelming and can be belittling. No one else has to sit at a table where everyone talks about just their problems over and over... That said, she knows her family loves her and is concerned and anxious about her overcoming addiction, even if sometimes they can be misinformed on how to be helpful. Patient very much hoping to get into longer term program substance abuse and discussed options. Remains very engaged in treatment, forthcoming in 1 on 1 sessions, attending groups, appropriate with peers and staff and in good behavioral and impulse control. PLAN CV (retracted 3 day) Q?15?minute?checks? Increase to lithium?ER 900?mg?q.h.s.; tolerating well Will reach get lithium level Continue clonidine p.r.n. for anxiety though patient not sure if helpful Trazodone 100 mg q.h.s. p.r.n. for insomnia; also 50 mg p.r.n. available for continued insomnia Will continue to help patient in pursuit of outpatient substance abuse program Reviewed medications risks/side effects which patient understands and with which agrees to continue Regarding [place], Risks, side-effects and benefits reviewed with pt, including, but not limited to, damage to kidneys and thyroid; pt was educated to stay hydrated, to watch for symptoms of lithium toxicity (also discussed, including but not limited to nausea, tremor, confusion) and the need to stay away from OTC NSAIDs (specifics reviewed) aside from Tylenol. Patient educated on: diagnosis, medication risk/benefits, substance abuse and therapeutic strategies Informed Consent: understands Reason for continued inpatient stay Substantial Risk for: stable for discharge Time Spent With Patient Time: Total time managing care of this patient today ____ minutes.
[2023-04-05] MEDS: Nicotine Polacrilex 2 MG GUM 4 MG BUCCAL (09:59)
[2023-04-05 11:06] LABS: Lithium 0.39 mmol/L (0.60-1.20)
[2023-04-05] MEDS: Nicotine Polacrilex Lozenge 4 MG LOZENGE BUCCAL (15:47)
[2023-04-05 17:06] VITALS: BP 115/72; PULSE 87; TEMP 36.2; O2SAT 100
[2023-04-05] MEDS: Lithium Carbonate ER 450 MG TABLET.ER 900 MG PO (23:14)
[2023-04-05] MEDS: traZODone HCL 100 MG TABLET PO (23:15)
[2023-04-06] MEDS: traZODone HCL 50 MG TABLET PO (02:55)
[2023-04-06] MEDS: Loratadine 10 MG TABLET PO (08:02)
[2023-04-06] MEDS: Sodium Chloride 0.65 % Nasal 44 ML SPRBTL 1 SPRAY NOSTRIL-B ×3 (08:02→22:14)
[2023-04-06] MEDS: hydrOXYzine HCL 50 MG TABLET PO ×2 (08:02→18:20)
[2023-04-06 09:58] VITALS: BP 126/66; PULSE 100; RESP 16; TEMP 36.8; O2SAT 100
--- NOTE | 2023-04-06 09:59 | HO.PSYCHPN ---
Subjective Subjective Date of Service: 04/06/23 Reason For Visit: Unspecified Schizophrenia Spectrum Interim History: met with patient; discussed with team Continues to be engaged in treatment. Discussed relationships with family and and how they interact wine with her struggles with substance abuse. Slept better last night with trazodone. Remains engaged in treatment, attending groups, appropriate peers and staff. Given that she is newly on lithium and dose was raised, patient agrees to stay on unit longer so that kidney, thyroid function can be checked Mental Status Exam Mental Status Exam Narrative: Pt is alert and oriented; behavior is cooperative, friendly and calm; patient is not in distress; dressed in casual attire, well groomed; mood is described as good and affect congruent, appropriate, calm; eye contact appropriate; Speech normal rate, volume and prosody; no psychomotor agitation/retardation present; thought process is organized, linear and goal directed; Thought content is on treatment, understanding diagnosis, pursuing sobriety; otherwise pertinent to relevant topics; no delusional or paranoid ideations; denies any SI/HI. There is no evidence of perceptual disturbance. Patients insight and judgment good. Diagnostics Vital Signs (24Hr): Vital Signs - 24 hr 04/05/23 17:06 04/06/23 09:58 Temperature 97.1 F 98.2 F Pulse Rate 87 100 Respiratory Rate 16 Blood Pressure 115/72 126/66 Pulse Oximetry 100 100 Oxygen Delivery Method Room Air Room Air Labs 03/31/23 08:15 Labs: Laboratory Results - last 48 hr 04/05/23 10:26 [place] 0.39 L Medications Medications Current Medications Acetaminophen (Acetaminophen 325 Mg Tablet) 650 mg PO Q6H PRN PRN Reason: Headache/Pain Mild Scale (1-3) Last Admin: 04/03/23 06:21 Dose: 650 mg Al Hydroxide/Mg Hydroxide (Magnesium Hydrox/Alum Hydrox 30 Ml Oral.Susp) 30 ml PO Q6H PRN PRN Reason: Heartburn/Nausea Last Admin: 04/04/23 23:15 Dose: 30 ml Clonidine HCl (Clonidine Hcl 0.1 Mg Tablet) 0.1 mg PO Q4H PRN; Protocol PRN Reason: anxiety Last Admin: 04/05/23 08:26 Dose: 0.1 mg Guaifenesin (Guaifenesin La 600 Mg Tab.Er.12h) 600 mg PO BID PRN PRN Reason: Congestion Last Admin: 04/05/23 08:26 Dose: 600 mg Hydroxyzine HCl (Hydroxyzine Hcl 50 Mg Tablet) 50 mg PO Q6H PRN PRN Reason: Anxiety/insomnia Last Admin: 04/06/23 08:02 Dose: [address] [place] Carbonate ([place] Carbonate Er 450 Mg Tablet.Er) 900 mg PO BEDTIME SHAUNA Last Admin: 04/05/23 23:14 Dose: 900 mg Loratadine (Loratadine 10 Mg Tablet) 10 mg PO DAILY SHAUNA Last Admin: 04/06/23 08:02 Dose: 10 mg Magnesium Hydroxide (Milk Of Magnesia 30 Ml Oral.Susp) 30 ml PO DAILY PRN PRN Reason: Constipation Nicotine (Nicotine 14 Mg Patch.Td24) 14 mg TRANSDERMA DAILY PRN PRN Reason: smoking cessation Last Admin: 04/05/23 08:47 Dose: 14 mg Nicotine Polacrilex (Nicotine Polacrilex Lozenge 4 Mg Lozenge) 4 mg BUCCAL Q2H PRN PRN Reason: Nicotine Cravings Last Admin: 04/05/23 15:47 Dose: 4 mg Sodium Chloride (Sodium Chloride 0.65 % Nasal 44 Ml Sprbtl) 1 spray NOSTRIL-B Q1H PRN PRN Reason: Congestion Last Admin: 04/06/23 08:02 Dose: 1 spray Trazodone HCl (Trazodone Hcl 100 Mg Tablet) 100 mg PO BEDTIME PRN PRN Reason: insomnia Last Admin: 04/05/23 23:15 Dose: 100 mg Trazodone HCl (Trazodone Hcl 50 Mg Tablet) 50 mg PO BEDTIME MRX1 PRN PRN Reason: for continued Insomnia Last Admin: 04/06/23 02:55 Dose: 50 mg Allergies Allergies Allergy/AdvReac Type Severity Reaction Status Date / Time No Known Allergies Allergy Verified 07/08/22 11:03 Assessment & Plan Assessment & Plan (1) Medical clearance for psychiatric admission: Status: Acute Code(s): Z00.8 - Encounter for other general examination Plan Patient?is?a?37-year-old?female?with?history?of?mild?depression/anxiety,?opioid?and?cocaine?abuse?who?presents?with?paranoid Delusions?and?the?face?of?1st?time?manic?episode and cocaine abuse.? -discussed dx and pt agrees she has bipolar disorder; becoming more clear about delusions; discussed tx options -episode?seems?to?have?been?triggered?by?starting?Lexapro;?symptoms?worsened?by?cocaine?abuse -1st?ever?florid?manic?episode;?however?according?to?mother,?seems?to?be?history?of?shorter,?very?mild?episode -symptoms starting to subside, slept well last night; becoming more clear minding Hospital course: 04/03: Consider adding low dose seroquel for anxiety, insomnia and tendency to paranoia 04/04 Patient reports feeling much better. Has good insight into past paranoid/delusional thinking and understands that none of this was real. Further reflection she can see there a possible mild hypomanic episodes that she thinks she probably hid under her naturally outgoing, effusive personality. Patient tolerating medication well and reports sleeping and eating well. She very much wants to go to a substance abuse program which her family is helping set up. Discussed anxiety which remains and she will try clonidine to see if that helps in addition to hydroxyzine. Patient remains engaged in treatment, attending groups, pleasant to work with and forthcoming in 1 on 1 sessions and appropriate with peers and staff, in good behavioral and impulse control. 04/05Patient reports doing overall well. Continues to have anxiety and not sure that clonidine is helping that much; also not sure if trazodone is helping that much. Discussed lithium and subtherapeutic level. Given continued anxiety and some trouble sleeping, patient agreed to increase it to 900 mg. If she still can not sleep she will try increased dose of trazodone. Patient shared some of the struggles she has at home, feeling that everyone is always talking about her problems, that is the main topic of conversation all the time and that he gets overwhelming and can be belittling. No one else has to sit at a table where everyone talks about just their problems over and over... That said, she knows her family loves her and is concerned and anxious about her overcoming addiction, even if sometimes they can be misinformed on how to be helpful. Patient very much hoping to get into longer term program substance abuse and discussed options. Remains very engaged in treatment, forthcoming in 1 on 1 sessions, attending groups, appropriate with peers and staff and in good behavioral and impulse control. 11/8Continues to be engaged in treatment. Discussed relationships with family and and how they interact wine with her struggles with substance abuse. Slept better last night with trazodone. Remains engaged in treatment, attending groups, appropriate peers and staff. Given that she is newly on lithium and dose was raised, patient agrees to stay on unit longer so that kidney, thyroid function can be checked PLAN CV (retracted 3 day) Q?15?minute?checks? Continue lithium?ER 900?mg?q.h.s.; tolerating well Ordered lithium level Continue clonidine p.r.n. for anxiety though patient not sure if helpful Trazodone 100 mg q.h.s. p.r.n. for insomnia; also 50 mg p.r.n. available for continued insomnia Will continue to help patient in pursuit of outpatient substance abuse program Reviewed medications risks/side effects which patient understands and with which agrees to continue Regarding [facility], Risks, side-effects and benefits reviewed with pt, including, but not limited to, damage to kidneys and thyroid; pt was educated to stay hydrated, to watch for symptoms of lithium toxicity (also discussed, including but not limited to nausea, tremor, confusion) and the need to stay away from OTC NSAIDs (specifics reviewed) aside from Tylenol. Patient educated on: diagnosis, medication risk/benefits and therapeutic strategies Informed Consent: understands Reason for continued inpatient stay Substantial Risk for: stable for discharge Time Spent With Patient Time: Total time managing care of this patient today ____ minutes.
[2023-04-06] MEDS: Nicotine Polacrilex Lozenge 4 MG LOZENGE BUCCAL ×2 (14:19→18:25)
[2023-04-06] MEDS: guaiFENesin LA 600 MG TAB.ER.12H PO (18:20)
[2023-04-06 22:00] VITALS: BP 136/84; PULSE 88; TEMP 35.9
[2023-04-06] MEDS: Lithium Carbonate ER 450 MG TABLET.ER 900 MG PO (22:13)
[2023-04-06] MEDS: traZODone HCL 100 MG TABLET PO (22:13)
[2023-04-07 08:00] VITALS: BP 131/81; PULSE 88; RESP 16; TEMP 36; O2SAT 100
[2023-04-07] MEDS: hydrOXYzine HCL 50 MG TABLET PO ×3 (08:12→23:41)
[2023-04-07] MEDS: Sodium Chloride 0.65 % Nasal 44 ML SPRBTL 1 SPRAY NOSTRIL-B ×2 (08:12→23:44)
[2023-04-07] MEDS: Loratadine 10 MG TABLET PO (08:12)
[2023-04-07] MEDS: guaiFENesin LA 600 MG TAB.ER.12H PO ×2 (09:48→23:45)
[2023-04-07] MEDS: Nicotine Polacrilex Lozenge 4 MG LOZENGE BUCCAL (09:48)
--- NOTE | 2023-04-07 14:04 | P.PNPSI_ITS ---
Subjective Subjective Date of Service: 04/07/23 Reason For Visit: Unspecified Schizophrenia Spectrum Interim History: Met with patient; discussed with team anxious; feeling triggered by peer on the unit who singled her out to be provoke. pt shares how she tries to look her best but ends up bottling her feelings which she is finding detrimental; feels need to open up more Mental Status Exam Mental Status Exam Narrative: Pt is alert and oriented; behavior is cooperative, friendly and calm; patient is not in distress; dressed in casual attire, well groomed; mood is described as anxious and affect congruent, appropriate, calm; eye contact appropriate; Speech normal rate, volume and prosody; no psychomotor agitation/retardation present; thought process is organized, linear and goal directed; Thought content is on treatment, understanding diagnosis, pursuing sobriety; otherwise pertinent to relevant topics; no delusional or paranoid ideations; denies any SI/HI. There is no evidence of perceptual disturbance. Patients insight and judgment good. Diagnostics Vital Signs (24Hr): Vital Signs - 24 hr 04/06/23 22:00 04/07/23 08:00 Temperature 96.6 F L 96.8 F Pulse Rate 88 88 Respiratory Rate 16 Blood Pressure 136/84 131/81 Pulse Oximetry 100 Oxygen Delivery Method Room Air Labs 03/31/23 08:15 Medications Medications Current Medications Acetaminophen (Acetaminophen 325 Mg Tablet) 650 mg PO Q6H PRN PRN Reason: Headache/Pain Mild Scale (1-3) Last Admin: 04/03/23 06:21 Dose: 650 mg Al Hydroxide/Mg Hydroxide (Magnesium Hydrox/Alum Hydrox 30 Ml Oral.Susp) 30 ml PO Q6H PRN PRN Reason: Heartburn/Nausea Last Admin: 04/04/23 23:15 Dose: 30 ml Clonidine HCl (Clonidine Hcl 0.1 Mg Tablet) 0.1 mg PO Q4H PRN; Protocol PRN Reason: anxiety Last Admin: 04/05/23 08:26 Dose: 0.1 mg Guaifenesin (Guaifenesin La 600 Mg Tab.Er.12h) 600 mg PO BID PRN PRN Reason: Congestion Last Admin: 04/07/23 09:48 Dose: 600 mg Hydroxyzine HCl (Hydroxyzine Hcl 50 Mg Tablet) 50 mg PO Q6H PRN PRN Reason: Anxiety/insomnia Last Admin: 04/07/23 08:12 Dose: 50 mg [place] Carbonate ([place] Carbonate Er 450 Mg Tablet.Er) 900 mg PO BEDTIME SHAUNA Last Admin: 04/06/23 22:13 Dose: 900 mg Loratadine (Loratadine 10 Mg Tablet) 10 mg PO DAILY SHAUNA Last Admin: 04/07/23 08:12 Dose: 10 mg Magnesium Hydroxide (Milk Of Magnesia 30 Ml Oral.Susp) 30 ml PO DAILY PRN PRN Reason: Constipation Nicotine (Nicotine 14 Mg Patch.Td24) 14 mg TRANSDERMA DAILY PRN PRN Reason: smoking cessation Last Admin: 04/05/23 08:47 Dose: 14 mg Nicotine Polacrilex (Nicotine Polacrilex Lozenge 4 Mg Lozenge) 4 mg BUCCAL Q2H PRN PRN Reason: Nicotine Cravings Last Admin: 04/07/23 09:48 Dose: 4 mg Sodium Chloride (Sodium Chloride 0.65 % Nasal 44 Ml Sprbtl) 1 spray NOSTRIL-B Q1H PRN PRN Reason: Congestion Last Admin: 04/07/23 08:12 Dose: 1 spray Trazodone HCl (Trazodone Hcl 100 Mg Tablet) 100 mg PO BEDTIME PRN PRN Reason: insomnia Last Admin: 04/06/23 22:13 Dose: 100 mg Trazodone HCl (Trazodone Hcl 50 Mg Tablet) 50 mg PO BEDTIME MRX1 PRN PRN Reason: for continued Insomnia Last Admin: 04/06/23 02:55 Dose: 50 mg Allergies Allergies Allergy/AdvReac Type Severity Reaction Status Date / Time No Known Allergies Allergy Verified 07/08/22 11:03 Assessment & Plan Assessment & Plan (1) Medical clearance for psychiatric admission: Status: Acute Code(s): Z00.8 - Encounter for other general examination Plan P atient?is?a?37-year-old?female?with?history?of?mild?depression/anxiety,?opioid?a nd?cocaine?abuse?who?presents?with?paranoid Delusions?and?the?face?of?1st?time?manic?episode and cocaine abuse.? -discussed dx and pt agrees she has bipolar disorder; becoming more clear about delusions; discussed tx options - episode?seems?to?have?been?triggered?by?starting?Lexapro;?symptoms?worsened?by?c ocaine?abuse - 1st?ever?florid?manic?episode;?however?according?to?mother,?seems?to?be?history? of?shorter,?very?mild?episode -symptoms starting to subside, slept well last night; becoming more clear minding Hospital course: 04/03: Consider adding low dose seroquel for anxiety, insomnia and tendency to paranoia 04/04 Patient reports feeling much better. Has good insight into past paranoid/delusional thinking and understands that none of this was real. Further reflection she can see there a possible mild hypomanic episodes that she thinks she probably hid under her naturally outgoing, effusive personality. Patient tolerating medication well and reports sleeping and eating well. She very much wants to go to a substance abuse program which her family is helping set up. Discussed anxiety which remains and she will try clonidine to see if that helps in addition to hydroxyzine. Patient remains engaged in treatment, attending groups, pleasant to work with and forthcoming in 1 on 1 sessions and appropriate with peers and staff, in good behavioral and impulse control. 04/05Patient reports doing overall well. Continues to have anxiety and not sure that clonidine is helping that much; also not sure if trazodone is helping that much. Discussed lithium and subtherapeutic level. Given continued anxiety and some trouble sleeping, patient agreed to increase it to 900 mg. If she still can not sleep she will try increased dose of trazodone. Patient shared some of the struggles she has at home, feeling that everyone is always talking about her problems, that is the main topic of conversation all the time and that he gets overwhelming and can be belittling. No one else has to sit at a table where everyone talks about just their problems over and over... That said, she knows her family loves her and is concerned and anxious about her overcoming addiction, even if sometimes they can be misinformed on how to be helpful. Patient very much hoping to get into longer term program substance abuse and discussed options. Remains very engaged in treatment, forthcoming in 1 on 1 sessions, attending groups, appropriate with peers and staff and in good behavioral and impulse control. ontinues to be engaged in treatment. Discussed relationships with family and and how they interact wine with her struggles with substance abuse. Slept better last night with trazodone. Remains engaged in treatment, attending groups, appropriate peers and staff. Given that she is newly on lithium and dose was raised, patient agrees to stay on unit longer so that kidney, thyroid function can be checked PLAN CV (retracted 3 day) Q?15?minute?checks? Continue lithium?ER 900?mg?q.h.s.; tolerating well Ordered lithium level Continue clonidine p.r.n. for anxiety though patient not sure if helpful Trazodone 100 mg q.h.s. p.r.n. for insomnia; also 50 mg p.r.n. available for continued insomnia Will continue to help patient in pursuit of outpatient substance abuse program Reviewed medications risks/side effects which patient understands and with which agrees to continue Regarding [place], Risks, side-effects and benefits reviewed with pt, including, but not limited to, damage to kidneys and thyroid; pt was educated to stay hydrated, to watch for symptoms of lithium toxicity (also discussed, including but not limited to nausea, tremor, confusion) and the need to stay away from OTC NSAIDs (specifics reviewed) aside from Tylenol. Patient educated on: diagnosis and therapeutic strategies Informed Consent: understands Reason for continued inpatient stay Substantial Risk for: stable for discharge Time Spent With Patient Time: Total time managing care of this patient today ____ minutes.
[2023-04-07 18:00] VITALS: BP 145/68; PULSE 130; TEMP 36.6; O2SAT 98
[2023-04-07] MEDS: Acetaminophen 325 MG TABLET 650 MG PO (18:29)
[2023-04-07] MEDS: Lithium Carbonate ER 450 MG TABLET.ER 900 MG PO (23:41)
[2023-04-07] MEDS: traZODone HCL 50 MG TABLET PO (23:41)
[2023-04-08 08:00] VITALS: BP 125/86; PULSE 105; RESP 18; TEMP 36.4; O2SAT 100
[2023-04-08] MEDS: guaiFENesin LA 600 MG TAB.ER.12H PO (08:50)
[2023-04-08] MEDS: cloNIDine HCL 0.1 MG TABLET PO ×4 (08:50→23:52)
[2023-04-08] MEDS: Loratadine 10 MG TABLET PO (08:50)
[2023-04-08] MEDS: hydrOXYzine HCL 50 MG TABLET PO ×3 (08:50→22:28)
--- NOTE | 2023-04-08 09:38 | P.PNPSI_ITS ---
Subjective Subjective Date of Service: 04/08/23 Reason For Visit: Unspecified Schizophrenia Spectrum Interim History: Met with patient; discussed with team Patient very forthcoming and discussed history of her anxiety. Said she is becoming very aware that she puts up a facade of being okay even though she may be struggling inside. She also is seeing her pattern of helping others instead of giving her own needs the attention they require; she is able to identify that deep down she struggles with self-worth, feels guilty about a lot of things and has self-deprecating thoughts. Patient also discussed how this ?facade has also been a helpful coping skill, getting her through many tough times and relationships but at this point in her life it is getting in the way of knowing herself and maturing psychologically. Patient more able to accept that even if she makes mistakes, it does not know if I her past achievements. Patient shared about how her older sister texted friends and family a picture of a body bag, implying that patient is going to from substance abuse; this got back to patient via another person. Patient feels frustrated by this type of emotional manipulation and is feeling sad that it is getting in the way of relationship with her sister. Patient loves her mother but is wondering if there relationship with better if they do not live together. Mental Status Exam Mental Status Exam Narrative: Pt is alert and oriented; behavior is cooperative, friendly and calm; patient is not in distress; dressed in casual attire, well groomed; mood is described as ok and affect congruent, appropriate, calm; eye contact appropriate; Speech normal rate, volume and prosody; no psychomotor agitation/retardation present; thought process is organized, linear and goal directed; Thought content is on treatment, understanding diagnosis, pursuing sobriety; otherwise pertinent to relevant topics; no delusional or paranoid ideations; denies any SI/HI. There is no evidence of perceptual disturbance. Patients insight and judgment fair. Diagnostics Vital Signs (24Hr): Vital Signs - 24 hr 04/07/23 18:00 04/08/23 08:00 Temperature 97.8 F 97.6 F Pulse Rate 130 H 105 H Respiratory Rate 18 Blood Pressure 145/68 H 125/86 Pulse Oximetry 98 100 Oxygen Delivery Method Room Air Room Air Labs 03/31/23 08:15 Medications Medications Current Medications Acetaminophen (Acetaminophen 325 Mg Tablet) 650 mg PO Q6H PRN PRN Reason: Headache/Pain Mild Scale (1-3) Last Admin: 04/07/23 18:29 Dose: 650 mg Al Hydroxide/Mg Hydroxide (Magnesium Hydrox/Alum Hydrox 30 Ml Oral.Susp) 30 ml PO Q6H PRN PRN Reason: Heartburn/Nausea Last Admin: 04/04/23 23:15 Dose: 30 ml Clonidine HCl (Clonidine Hcl 0.1 Mg Tablet) 0.1 mg PO Q4H PRN; Protocol PRN Reason: anxiety Last Admin: 04/08/23 08:50 Dose: 0.1 mg Guaifenesin (Guaifenesin La 600 Mg Tab.Er.12h) 600 mg PO BID PRN PRN Reason: Congestion Last Admin: 04/08/23 08:50 Dose: 600 mg Hydroxyzine HCl (Hydroxyzine Hcl 50 Mg Tablet) 50 mg PO Q6H PRN PRN Reason: Anxiety/insomnia Last Admin: 04/08/23 08:50 Dose: 50 mg [place] Carbonate ([place] Carbonate Er 450 Mg Tablet.Er) 900 mg PO BEDTIME SHAUNA Last Admin: 04/07/23 23:41 Dose: 900 mg Loratadine (Loratadine 10 Mg Tablet) 10 mg PO DAILY SHAUNA Last Admin: 04/08/23 08:50 Dose: 10 mg Magnesium Hydroxide (Milk Of Magnesia 30 Ml Oral.Susp) 30 ml PO DAILY PRN PRN Reason: Constipation Nicotine (Nicotine 14 Mg Patch.Td24) 14 mg TRANSDERMA DAILY PRN PRN Reason: smoking cessation Last Admin: 04/05/23 08:47 Dose: 14 mg Nicotine Polacrilex (Nicotine Polacrilex Lozenge 4 Mg Lozenge) 4 mg BUCCAL Q2H PRN PRN Reason: Nicotine Cravings Last Admin: 04/07/23 09:48 Dose: 4 mg Sodium Chloride (Sodium Chloride 0.65 % Nasal 44 Ml Sprbtl) 1 spray NOSTRIL-B Q1H PRN PRN Reason: Congestion Last Admin: 04/07/23 23:44 Dose: 1 spray Trazodone HCl (Trazodone Hcl 100 Mg Tablet) 100 mg PO BEDTIME PRN PRN Reason: insomnia Last Admin: 04/06/23 22:13 Dose: 100 mg Trazodone HCl (Trazodone Hcl 50 Mg Tablet) 50 mg PO BEDTIME MRX1 PRN PRN Reason: for continued Insomnia Last Admin: 04/07/23 23:41 Dose: 50 mg Allergies Allergies Allergy/AdvReac Type Severity Reaction Status Date / Time No Known Allergies Allergy Verified 07/08/22 11:03 Assessment & Plan Assessment & Plan (1) Medical clearance for psychiatric admission: Status: Acute Code(s): Z00.8 - Encounter for other general examination Plan P atient?is?a?37-year-old?female?with?history?of?mild?depression/anxiety,?opioid?a nd?cocaine?abuse?who?presents?with?paranoid Delusions?and?the?face?of?1st?time?manic?episode and cocaine abuse.? -discussed dx and pt agrees she has bipolar disorder; becoming more clear about delusions; discussed tx options - episode?seems?to?have?been?triggered?by?starting?Lexapro;?symptoms?worsened?by?c ocaine?abuse - 1st?ever?florid?manic?episode;?however?according?to?mother,?seems?to?be?history? of?shorter,?very?mild?episode -symptoms starting to subside, slept well last night; becoming more clear minding Hospital course: 04/03: Consider adding low dose seroquel for anxiety, insomnia and tendency to paranoia 04/04 Patient reports feeling much better. Has good insight into past paranoid/delusional thinking and understands that none of this was real. Further reflection she can see there a possible mild hypomanic episodes that she thinks she probably hid under her naturally outgoing, effusive personality. Patient tolerating medication well and reports sleeping and eating well. She very much wants to go to a substance abuse program which her family is helping set up. Discussed anxiety which remains and she will try clonidine to see if that helps in addition to hydroxyzine. Patient remains engaged in treatment, attending groups, pleasant to work with and forthcoming in 1 on 1 sessions and appropriate with peers and staff, in good behavioral and impulse control. 04/05Patient reports doing overall well. Continues to have anxiety and not sure that clonidine is helping that much; also not sure if trazodone is helping that much. Discussed lithium and subtherapeutic level. Given continued anxiety and some trouble sleeping, patient agreed to increase it to 900 mg. If she still can not sleep she will try increased dose of trazodone. Patient shared some of the struggles she has at home, feeling that everyone is always talking about her problems, that is the main topic of conversation all the time and that he gets overwhelming and can be belittling. No one else has to sit at a table where everyone talks about just their problems over and over... That said, she knows her family loves her and is concerned and anxious about her overcoming addiction, even if sometimes they can be misinformed on how to be helpful. Patient very much hoping to get into longer term program substance abuse and discussed options. Remains very engaged in treatment, forthcoming in 1 on 1 sessions, attending groups, appropriate with peers and staff and in good behavioral and impulse control. ontinues to be engaged in treatment. Discussed relationships with family and and how they interact wine with her struggles with substance abuse. Slept better last night with trazodone. Remains engaged in treatment, attending groups, appropriate peers and staff. Given that she is newly on lithium and dose was raised, patient agrees to stay on unit longer so that kidney, thyroid function can be checked 04/08 patient continues to stabilize; tolerating medication. Discussing her anxieties, history, relationships, in a forthcoming, mature and self reflective way. Avoiding peer on the unit who has been provoking her and others PLAN CV (retracted 3 day) Q?15?minute?checks? Continue lithium?ER 900?mg?q.h.s.; tolerating well Ordered lithium level Continue clonidine p.r.n. for anxiety though patient not sure if helpful Trazodone 100 mg q.h.s. p.r.n. for insomnia; also 50 mg p.r.n. available for continued insomnia Will continue to help patient in pursuit of outpatient substance abuse program Reviewed medications risks/side effects which patient understands and with which agrees to continue Regarding [place], Risks, side-effects and benefits reviewed with pt, including, but not limited to, damage to kidneys and thyroid; pt was educated to stay hydrated, to watch for symptoms of lithium toxicity (also discussed, including but not limited to nausea, tremor, confusion) and the need to stay away from OTC NSAIDs (specifics reviewed) aside from Tylenol. Patient educated on: diagnosis, medication risk/benefits, substance abuse and therapeutic strategies Informed Consent: understands Reason for continued inpatient stay Substantial Risk for: stable for discharge Time Spent With Patient Time: Total time managing care of this patient today ____ minutes.
[2023-04-08] MEDS: Fluticasone Propionate Nasal 16 GM SPRAY 1 SPRAY NOSTRIL-B ×2 (12:49→22:31)
[2023-04-08] MEDS: Nicotine 14 MG PATCH.TD24 TRANSDERMA (13:30)
[2023-04-08] MEDS: Nicotine Polacrilex Lozenge 4 MG LOZENGE BUCCAL ×4 (13:31→23:51)
--- NOTE | 2023-04-08 16:20 | PC.NURSE ---
per request of dr. Bañuelos. Pt no longer needs to have supervised visits due to having contraband brought in on the unit. (cell phone)
[2023-04-08] MEDS: Sodium Chloride 0.65 % Nasal 44 ML SPRBTL 1 SPRAY NOSTRIL-B (16:46)
[2023-04-08 16:49] VITALS: BP 89/57; PULSE 91; RESP 18; TEMP 36.1; O2SAT 100
[2023-04-08] MEDS: Lithium Carbonate ER 450 MG TABLET.ER 900 MG PO (22:26)
[2023-04-08] MEDS: traZODone HCL 100 MG TABLET PO (22:31)
[2023-04-08] MEDS: traZODone HCL 50 MG TABLET PO (23:51)
[2023-04-09 09:16] VITALS: BP 94/61; PULSE 65; RESP 16; TEMP 36.3; O2SAT 96
[2023-04-09] MEDS: guaiFENesin LA 600 MG TAB.ER.12H PO ×2 (09:38→20:22)
[2023-04-09] MEDS: hydrOXYzine HCL 50 MG TABLET PO ×2 (09:38→22:09)
[2023-04-09] MEDS: Loratadine 10 MG TABLET PO (09:38)
[2023-04-09] MEDS: Fluticasone Propionate Nasal 16 GM SPRAY 1 SPRAY NOSTRIL-B ×2 (09:39→22:09)
--- NOTE | 2023-04-09 10:41 | P.PNPSI_ITS ---
Subjective Subjective Date of Service: 04/09/23 Reason For Visit: Unspecified Schizophrenia Spectrum Subjective Notes: Conditional Voluntary Interim History: pt reports doing well; feeling ready for discharge next week; polite; visible interacting with peers and staff. No SI or HI Medication Compliance: Yes Side effects from medications: No Attending Groups: Yes Review of Systems Acute medical concerns: No Medical Review of Systems: unchanged Review of Systems Review of Systems Patient has no acute medical complaints at this time Constitutional: Reports as per HPI Eyes: Reports as per HPI Reports as per HPI Cardiovascular: Reports as per HPI Respiratory: Reports as per HPI Gastrointestinal: Reports as per HPI Musculoskeletal: Reports as per HPI Skin/Breast: Reports as per HPI Reports as per HPI Psychiatric: Reports as per HPI Endocrine: Reports as per HPI Hematologic/Lymphatic: Reports as per HPI Allergic/Immunologic: Reports as per HPI Mental Status Exam Mental Status Exam Narrative: Pt is alert and oriented; behavior is cooperative, friendly and calm; patient is not in distress; dressed in casual attire, well groomed; mood is described as ok and affect congruent, appropriate, calm; eye contact appropriate; Speech normal rate, volume and prosody; no psychomotor agitation/retardation present; thought process is organized, linear and goal directed; Thought content is on treatment, understanding diagnosis, pursuing sobriety; otherwise pertinent to relevant topics; no delusional or paranoid ideations; denies any SI/HI. There is no evidence of perceptual disturbance. Patients insight and judgment fair. Patient Appearance: Unkempt Patient Orientation: Person, Place, Time and Situation Level of Consciousness: Alert Patient Behavior: Appropriate Mood Description: Anxious Affect Description: Calm Patient Cognition Impaired: No Ability to Follow Directions: Excellent Speech Pattern: Clear Memory Description: Intact Diagnostics Vital Signs (24Hr): Vital Signs - 24 hr 04/08/23 16:49 Temperature 96.9 F Pulse Rate 91 Respiratory Rate 18 Blood Pressure 89/57 L Pulse Oximetry 100 Oxygen Delivery Method Room Air Labs 04/10/23 07:21 Medications Medications Current Medications Acetaminophen (Acetaminophen 325 Mg Tablet) 650 mg PO Q6H PRN PRN Reason: Headache/Pain Mild Scale (1-3) Last Admin: 04/07/23 18:29 Dose: 650 mg Al Hydroxide/Mg Hydroxide (Magnesium Hydrox/Alum Hydrox 30 Ml Oral.Susp) 30 ml PO Q6H PRN PRN Reason: Heartburn/Nausea Last Admin: 04/04/23 23:15 Dose: 30 ml Clonidine HCl (Clonidine Hcl 0.1 Mg Tablet) 0.1 mg PO Q4H PRN; Protocol PRN Reason: anxiety Last Admin: 04/08/23 23:52 Dose: 0.1 mg Fluticasone Propionate (Fluticasone Propionate Nasal 16 Gm Gray) 1 spray NOSTRIL-B BID PRN PRN Reason: congested nares Last Admin: 04/09/23 09:39 Dose: 1 spray Guaifenesin (Guaifenesin La 600 Mg Tab.Er.12h) 600 mg PO BID PRN PRN Reason: Congestion Last Admin: 04/09/23 09:38 Dose: 600 mg Hydroxyzine HCl (Hydroxyzine Hcl 50 Mg Tablet) 50 mg PO Q6H PRN PRN Reason: Anxiety/insomnia Last Admin: 04/09/23 09:38 Dose: 50 mg [place] Carbonate ([place] Carbonate Er 450 Mg Tablet.Er) 900 mg PO BEDTIME SHAUNA Last Admin: 04/08/23 22:26 Dose: 900 mg Loratadine (Loratadine 10 Mg Tablet) 10 mg PO DAILY SHAUNA Last Admin: 04/09/23 09:38 Dose: 10 mg Magnesium Hydroxide (Milk Of Magnesia 30 Ml Oral.Susp) 30 ml PO DAILY PRN PRN Reason: Constipation Nicotine (Nicotine 14 Mg Patch.Td24) 14 mg TRANSDERMA DAILY PRN PRN Reason: smoking cessation Last Admin: 04/08/23 13:30 Dose: 14 mg Nicotine Polacrilex (Nicotine Polacrilex Lozenge 4 Mg Lozenge) 4 mg BUCCAL Q2H PRN PRN Reason: Nicotine Cravings Last Admin: 04/08/23 23:51 Dose: 4 mg Sodium Chloride (Sodium Chloride 0.65 % Nasal 44 Ml Sprbtl) 1 spray NOSTRIL-B Q1H PRN PRN Reason: Congestion Last Admin: 04/08/23 16:46 Dose: 1 spray Trazodone HCl (Trazodone Hcl 100 Mg Tablet) 100 mg PO BEDTIME PRN PRN Reason: insomnia Last Admin: 04/08/23 22:31 Dose: 100 mg Trazodone HCl (Trazodone Hcl 50 Mg Tablet) 50 mg PO BEDTIME MRX1 PRN PRN Reason: for continued Insomnia Last Admin: 04/08/23 23:51 Dose: 50 mg Allergies Allergies Allergy/AdvReac Type Severity Reaction Status Date / Time No Known Allergies Allergy Verified 07/08/22 11:03 Assessment & Plan Assessment & Plan (1) Medical clearance for psychiatric admission: Status: Acute Code(s): Z00.8 - Encounter for other general examination Plan P atient?is?a?37-year-old?female?with?history?of?mild?depression/anxiety,?opioid?a nd?cocaine?abuse?who?presents?with?paranoid Delusions?and?the?face?of?1st?time?manic?episode and cocaine abuse.? -discussed dx and pt agrees she has bipolar disorder; becoming more clear about delusions; discussed tx options - episode?seems?to?have?been?triggered?by?starting?Lexapro;?symptoms?worsened?by?c ocaine?abuse - 1st?ever?florid?manic?episode;?however?according?to?mother,?seems?to?be?history? of?shorter,?very?mild?episode -symptoms starting to subside, slept well last night; becoming more clear minding Hospital course: 04/03: Consider adding low dose seroquel for anxiety, insomnia and tendency to paranoia 04/04 Patient reports feeling much better. Has good insight into past paranoid/delusional thinking and understands that none of this was real. Further reflection she can see there a possible mild hypomanic episodes that she thinks she probably hid under her naturally outgoing, effusive personality. Patient tolerating medication well and reports sleeping and eating well. She very much wants to go to a substance abuse program which her family is helping set up. Discussed anxiety which remains and she will try clonidine to see if that helps in addition to hydroxyzine. Patient remains engaged in treatment, attending groups, pleasant to work with and forthcoming in 1 on 1 sessions and appropriate with peers and staff, in good behavioral and impulse control. 04/05Patient reports doing overall well. Continues to have anxiety and not sure that clonidine is helping that much; also not sure if trazodone is helping that much. Discussed lithium and subtherapeutic level. Given continued anxiety and some trouble sleeping, patient agreed to increase it to 900 mg. If she still can not sleep she will try increased dose of trazodone. Patient shared some of the struggles she has at home, feeling that everyone is always talking about her problems, that is the main topic of conversation all the time and that he gets overwhelming and can be belittling. No one else has to sit at a table where everyone talks about just their problems over and over... That said, she knows her family loves her and is concerned and anxious about her overcoming addiction, even if sometimes they can be misinformed on how to be helpful. Patient very much hoping to get into longer term program substance abuse and discussed options. Remains very engaged in treatment, forthcoming in 1 on 1 sessions, attending groups, appropriate with peers and staff and in good behavioral and impulse control. ontinues to be engaged in treatment. Discussed relationships with family and and how they interact wine with her struggles with substance abuse. Slept better last night with trazodone. Remains engaged in treatment, attending groups, appropriate peers and staff. Given that she is newly on lithium and dose was raised, patient agrees to stay on unit longer so that kidney, thyroid function can be checked 04/08 patient continues to stabilize; tolerating medication. Discussing her anxieties, history, relationships, in a forthcoming, mature and self reflective way. Avoiding peer on the unit who has been provoking her and others 04/09 continue tx plan PLAN CV (retracted 3 day) Q?15?minute?checks? Continue lithium?ER 900?mg?q.h.s.; tolerating well Ordered lithium level Continue clonidine p.r.n. for anxiety though patient not sure if helpful Trazodone 100 mg q.h.s. p.r.n. for insomnia; also 50 mg p.r.n. available for continued insomnia Will continue to help patient in pursuit of outpatient substance abuse program Reviewed medications risks/side effects which patient understands and with which agrees to continue Regarding [place], Risks, side-effects and benefits reviewed with pt, including, but not limited to, damage to kidneys and thyroid; pt was educated to stay hydrated, to watch for symptoms of lithium toxicity (also discussed, including but not limited to nausea, tremor, confusion) and the need to stay away from OTC NSAIDs (specifics reviewed) aside from Tylenol. Reason for continued inpatient stay Substantial Risk for: harm to self Time Spent With Patient Time: Total time managing care of this patient today ____ minutes.
[2023-04-09] MEDS: Nicotine 14 MG PATCH.TD24 TRANSDERMA (13:12)
[2023-04-09] MEDS: Nicotine Polacrilex Lozenge 4 MG LOZENGE BUCCAL ×3 (13:12→22:09)
[2023-04-09 16:15] VITALS: BP 107/68; PULSE 83; RESP 16; TEMP 36.9; O2SAT 100
[2023-04-09] MEDS: cloNIDine HCL 0.1 MG TABLET PO (20:23)
[2023-04-09] MEDS: traZODone HCL 100 MG TABLET PO (22:09)
[2023-04-09] MEDS: Lithium Carbonate ER 450 MG TABLET.ER 900 MG PO (22:09)
[2023-04-10] MEDS: Acetaminophen 325 MG TABLET 650 MG PO ×2 (06:18→20:07)
[2023-04-10 06:45] VITALS: BP 68/56; PULSE 58; RESP 12; TEMP 36.1; O2SAT 100
[2023-04-10 07:00] VITALS: BP 96/59; PULSE 51; RESP 16; O2SAT 100
[2023-04-10 07:51] LABS: Lithium 1.04 mmol/L (0.60-1.20)
[2023-04-10 08:02] LABS: Blood Urea Nitrogen 16 mg/dL (9-16); Estimated Glomerular Filt Rate > 60
[2023-04-10 09:03] LABS: Free T4 (Free Thyroxine) 0.76 ng/dL (0.71-1.85)
[2023-04-10] MEDS: Loratadine 10 MG TABLET PO (09:22)
[2023-04-10] MEDS: Nicotine Polacrilex Lozenge 4 MG LOZENGE BUCCAL (09:57)
[2023-04-10] MEDS: hydrOXYzine HCL 50 MG TABLET PO ×2 (09:57→20:44)
[2023-04-10] MEDS: guaiFENesin LA 600 MG TAB.ER.12H PO (09:57)
[2023-04-10] MEDS: Nicotine 14 MG PATCH.TD24 TRANSDERMA (09:58)
[2023-04-10] MEDS: Fluticasone Propionate Nasal 16 GM SPRAY 1 SPRAY NOSTRIL-B (10:00)
[2023-04-10 18:00] VITALS: BP 119/58; PULSE 95; TEMP 36.7; O2SAT 96
--- NOTE | 2023-04-10 20:07 | P.PNPSI_ITS ---
Subjective Subjective Date of Service: 04/10/23 Reason For Visit: Unspecified Schizophrenia Spectrum Subjective Notes: Conditional Voluntary Interim History: pt reports doing well; feeling ready for discharge next week; polite and helpful to peers; visible in milieu. No SI or HI Medication Compliance: Yes Side effects from medications: No Attending Groups: Yes Review of Systems Acute medical concerns: No Medical Review of Systems: unchanged Review of Systems Review of Systems Patient has no acute medical complaints at this time Constitutional: Reports as per HPI Eyes: Reports as per HPI Reports as per HPI Cardiovascular: Reports as per HPI Respiratory: Reports as per HPI Gastrointestinal: Reports as per HPI Musculoskeletal: Reports as per HPI Skin/Breast: Reports as per HPI Reports as per HPI Psychiatric: Reports as per HPI Endocrine: Reports as per HPI Hematologic/Lymphatic: Reports as per HPI Allergic/Immunologic: Reports as per HPI Mental Status Exam Mental Status Exam Narrative: Pt is alert and oriented; behavior is cooperative, friendly and calm; patient is not in distress; dressed in casual attire, well groomed; mood is described as ok and affect congruent, appropriate, calm; eye contact appropriate; Speech normal rate, volume and prosody; no psychomotor agitation/retardation present; thought process is organized, linear and goal directed; Thought content is on treatment, understanding diagnosis, pursuing sobriety; otherwise pertinent to relevant topics; no delusional or paranoid ideations; denies any SI/HI. There is no evidence of perceptual disturbance. Patients insight and judgment fair. Patient Appearance: Unkempt Patient Orientation: Person, Place, Time and Situation Level of Consciousness: Alert Patient Behavior: Appropriate Mood Description: Anxious Affect Description: Calm Patient Cognition Impaired: No Ability to Follow Directions: Excellent Speech Pattern: Clear Memory Description: Intact Diagnostics Vital Signs (24Hr): Vital Signs - 24 hr 04/10/23 06:45 04/10/23 07:00 04/10/23 18:00 Temperature 97 F 98.1 F Pulse Rate 58 51 95 Respiratory Rate 12 16 Blood Pressure 68/56 L 96/59 L 119/58 L Pulse Oximetry 100 100 96 Oxygen Delivery Method Room Air Room Air Room Air Labs 04/10/23 07:21 Labs: Laboratory Results - last 48 hr 04/10/23 07:21 BUN 16 Creatinine 0.84 Estim Creat Clear Calc TNP Estimated GFR > 60 TSH 8.90 H Free T4 0.76 [place] 1.04 Medications Medications Current Medications Acetaminophen (Acetaminophen 325 Mg Tablet) 650 mg PO Q6H PRN PRN Reason: Headache/Pain Mild Scale (1-3) Last Admin: 04/10/23 06:18 Dose: 650 mg Al Hydroxide/Mg Hydroxide (Magnesium Hydrox/Alum Hydrox 30 Ml Oral.Susp) 30 ml PO Q6H PRN PRN Reason: Heartburn/Nausea Last Admin: 04/04/23 23:15 Dose: 30 ml Clonidine HCl (Clonidine Hcl 0.1 Mg Tablet) 0.1 mg PO Q4H PRN; Protocol PRN Reason: anxiety Last Admin: 04/09/23 20:23 Dose: 0.1 mg Fluticasone Propionate (Fluticasone Propionate Nasal 16 Gm [place]) 1 spray NOSTRIL-B BID PRN PRN Reason: congested nares Last Admin: 04/10/23 10:00 Dose: 1 spray Guaifenesin (Guaifenesin [place] 600 Mg Tab.Er.12h) 600 mg PO BID PRN PRN Reason: Congestion Last Admin: 04/10/23 09:57 Dose: 600 mg Hydroxyzine HCl (Hydroxyzine Hcl 50 Mg Tablet) 50 mg PO Q6H PRN PRN Reason: Anxiety/insomnia Last Admin: 04/10/23 09:57 Dose: 50 mg [place] Carbonate ([place] Carbonate Er 450 Mg Tablet.Er) 900 mg PO BEDTIME SHAUNA Last Admin: 04/09/23 22:09 Dose: 900 mg Loratadine (Loratadine 10 Mg Tablet) 10 mg PO DAILY SHAUNA Last Admin: 04/10/23 09:22 Dose: 10 mg Magnesium Hydroxide (Milk Of Magnesia 30 Ml Oral.Susp) 30 ml PO DAILY PRN PRN Reason: Constipation Nicotine (Nicotine 14 Mg Patch.Td24) 14 mg TRANSDERMA DAILY PRN PRN Reason: smoking cessation Last Admin: 04/10/23 09:58 Dose: 14 mg Nicotine Polacrilex (Nicotine Polacrilex Lozenge 4 Mg Lozenge) 4 mg BUCCAL Q2H PRN PRN Reason: Nicotine Cravings Last Admin: 04/10/23 09:57 Dose: 4 mg Sodium Chloride (Sodium Chloride 0.65 % Nasal 44 Ml Sprbtl) 1 spray NOSTRIL-B Q1H PRN PRN Reason: Congestion Last Admin: 04/08/23 16:46 Dose: 1 spray Trazodone HCl (Trazodone Hcl 100 Mg Tablet) 100 mg PO BEDTIME PRN PRN Reason: insomnia Last Admin: 04/09/23 22:09 Dose: 100 mg Trazodone HCl (Trazodone Hcl 50 Mg Tablet) 50 mg PO BEDTIME MRX1 PRN PRN Reason: for continued Insomnia Last Admin: 04/08/23 23:51 Dose: 50 mg Allergies Allergies Allergy/AdvReac Type Severity Reaction Status Date / Time No Known Allergies Allergy Verified 07/08/22 11:03 Assessment & Plan Assessment & Plan (1) Medical clearance for psychiatric admission: Status: Acute Code(s): Z00.8 - Encounter for other general examination Plan P atient?is?a?37-year-old?female?with?history?of?mild?depression/anxiety,?opioid?a nd?cocaine?abuse?who?presents?with?paranoid Delusions?and?the?face?of?1st?time?manic?episode and cocaine abuse.? -discussed dx and pt agrees she has bipolar disorder; becoming more clear about delusions; discussed tx options - episode?seems?to?have?been?triggered?by?starting?Lexapro;?symptoms?worsened?by?c ocaine?abuse - 1st?ever?florid?manic?episode;?however?according?to?mother,?seems?to?be?history? of?shorter,?very?mild?episode -symptoms starting to subside, slept well last night; becoming more clear minding Hospital course: 04/03: Consider adding low dose seroquel for anxiety, insomnia and tendency to paranoia 04/04 Patient reports feeling much better. Has good insight into past paranoid/delusional thinking and understands that none of this was real. Further reflection she can see there a possible mild hypomanic episodes that she thinks she probably hid under her naturally outgoing, effusive personality. Patient tolerating medication well and reports sleeping and eating well. She very much wants to go to a substance abuse program which her family is helping set up. Discussed anxiety which remains and she will try clonidine to see if that helps in addition to hydroxyzine. Patient remains engaged in treatment, attending groups, pleasant to work with and forthcoming in 1 on 1 sessions and appropriate with peers and staff, in good behavioral and impulse control. 11/7Patient reports doing overall well. Continues to have anxiety and not sure that clonidine is helping that much; also not sure if trazodone is helping that much. Discussed lithium and subtherapeutic level. Given continued anxiety and some trouble sleeping, patient agreed to increase it to 900 mg. If she still can not sleep she will try increased dose of trazodone. Patient shared some of the struggles she has at home, feeling that everyone is always talking about her problems, that is the main topic of conversation all the time and that he gets overwhelming and can be belittling. No one else has to sit at a table where everyone talks about just their problems over and over... That said, she knows her family loves her and is concerned and anxious about her overcoming addiction, even if sometimes they can be misinformed on how to be helpful. Patient very much hoping to get into longer term program substance abuse and discussed options. Remains very engaged in treatment, forthcoming in 1 on 1 sessions, attending groups, appropriate with peers and staff and in good behavioral and impulse control. ontinues to be engaged in treatment. Discussed relationships with family and and how they interact wine with her struggles with substance abuse. Slept better last night with trazodone. Remains engaged in treatment, attending groups, appropriate peers and staff. Given that she is newly on lithium and dose was raised, patient agrees to stay on unit longer so that kidney, thyroid function can be checked 04/08 patient continues to stabilize; tolerating medication. Discussing her anxieties, history, relationships, in a forthcoming, mature and self reflective way. Avoiding peer on the unit who has been provoking her and others 04/09 continue tx plan 04/10/23 continue tx plan PLAN CV (retracted 3 day) Q?15?minute?checks? Continue lithium?ER 900?mg?q.h.s.; tolerating well Ordered lithium level Continue clonidine p.r.n. for anxiety though patient not sure if helpful Trazodone 100 mg q.h.s. p.r.n. for insomnia; also 50 mg p.r.n. available for continued insomnia Will continue to help patient in pursuit of outpatient substance abuse program Reviewed medications risks/side effects which patient understands and with which agrees to continue Regarding [place], Risks, side-effects and benefits reviewed with pt, including, but not limited to, damage to kidneys and thyroid; pt was educated to stay hydrated, to watch for symptoms of lithium toxicity (also discussed, including but not limited to nausea, tremor, confusion) and the need to stay away from OTC NSAIDs (specifics reviewed) aside from Tylenol. Reason for continued inpatient stay Substantial Risk for: harm to self Time Spent With Patient Time: Total time managing care of this patient today ____ minutes.
[2023-04-10] MEDS: Lithium Carbonate ER 450 MG TABLET.ER 900 MG PO (20:45)
[2023-04-10] MEDS: traZODone HCL 50 MG TABLET PO (22:08)
[2023-04-11] MEDS: Fluticasone Propionate Nasal 16 GM SPRAY 1 SPRAY NOSTRIL-B ×2 (08:55→19:37)
[2023-04-11] MEDS: Nicotine 14 MG PATCH.TD24 TRANSDERMA (08:55)
[2023-04-11] MEDS: Loratadine 10 MG TABLET PO (08:56)
[2023-04-11] MEDS: hydrOXYzine HCL 50 MG TABLET PO (08:56)
[2023-04-11] MEDS: Nicotine Polacrilex Lozenge 4 MG LOZENGE BUCCAL ×4 (08:56→22:49)
[2023-04-11] MEDS: guaiFENesin LA 600 MG TAB.ER.12H PO (08:56)
[2023-04-11 09:31] VITALS: BP 119/79; PULSE 76; RESP 16; TEMP 36.3; O2SAT 96
--- NOTE | 2023-04-11 09:58 | P.PNPSI_ITS ---
Subjective Subjective Date of Service: 04/11/23 Reason For Visit: Bipolar disorder Interim History: met with patient; discussed with team; reviewed notes feeling good; patient sleeping and eating well, feeling calm, organized and considering treatment options. Patient is ambivalent about what would be best for her, going to a CSS program verses going to an IOP and attending AA meetings daily. Patient is aware that she is very unlikely to get into a program by tomorrow discharge date and will thus most likely start IOP this Tuesday which she is looking forward to. Patient is navigating through family relationships and thinks that it is probably best she does not continue living at her parent's house; says she will likely go to live at her boyfriend's mother's house, where the to have lived in the past. discussed labs, and elevated TSH likely due to lithium; patient understands medication side effect agrees to continue taking lithium saying she feels very stable on this medication. Agrees to start levothyroxine; again reviewed risks/side effects of medication regimen. Mental Status Exam Mental Status Exam Narrative: Pt is alert and oriented; behavior is cooperative, friendly and calm; patient is not in distress; dressed in casual attire, well groomed; mood is described as good and affect congruent, appropriate, calm; eye contact appropriate; Speech normal rate, volume and prosody; no psychomotor agitation/retardation present; thought process is organized, linear and goal directed; Thought content is on treatment, aftercare, pursuing sobriety; otherwise pertinent to relevant topics; no delusional or paranoid ideations; denies any SI/HI. There is no evidence of perceptual disturbance. Patients insight and judgment fair. Diagnostics Vital Signs (24Hr): Vital Signs - 24 hr 04/10/23 18:00 04/11/23 09:31 Temperature 98.1 F 97.3 F Pulse Rate 95 76 Respiratory Rate 16 Blood Pressure 119/58 L 119/79 Pulse Oximetry 96 96 Oxygen Delivery Method Room Air Room Air Labs 04/10/23 07:21 Labs: Laboratory Results - last 48 hr 04/10/23 07:21 BUN 16 Creatinine 0.84 Estim Creat Clear Calc TNP Estimated GFR > 60 TSH 8.90 H Free T4 0.76 [place] 1.04 Medications Medications Current Medications Acetaminophen (Acetaminophen 325 Mg Tablet) 650 mg PO Q6H PRN PRN Reason: Headache/Pain Mild Scale (1-3) Last Admin: 04/10/23 20:07 Dose: 650 mg Al Hydroxide/Mg Hydroxide (Magnesium Hydrox/Alum Hydrox 30 Ml Oral.Susp) 30 ml PO Q6H PRN PRN Reason: Heartburn/Nausea Last Admin: 04/04/23 23:15 Dose: 30 ml Clonidine HCl (Clonidine Hcl 0.1 Mg Tablet) 0.1 mg PO Q4H PRN; Protocol PRN Reason: anxiety Last Admin: 04/09/23 20:23 Dose: 0.1 mg Fluticasone Propionate (Fluticasone Propionate Nasal 16 Gm [place]) 1 spray NOSTRIL-B BID PRN PRN Reason: congested nares Last Admin: 04/11/23 08:55 Dose: 1 spray Guaifenesin (Guaifenesin [place] 600 Mg Tab.Er.12h) 600 mg PO BID PRN PRN Reason: Congestion Last Admin: 04/11/23 08:56 Dose: 600 mg Hydroxyzine HCl (Hydroxyzine Hcl 50 Mg Tablet) 50 mg PO Q6H PRN PRN Reason: Anxiety/insomnia Last Admin: 04/11/23 08:56 Dose: 50 mg [place] Carbonate ([place] Carbonate Er 450 Mg Tablet.Er) 900 mg PO BEDTIME SHAUNA Last Admin: 04/10/23 20:45 Dose: 900 mg Loratadine (Loratadine 10 Mg Tablet) 10 mg PO DAILY SHAUNA Last Admin: 04/11/23 08:56 Dose: 10 mg Magnesium Hydroxide (Milk Of Magnesia 30 Ml Oral.Susp) 30 ml PO DAILY PRN PRN Reason: Constipation Nicotine (Nicotine 14 Mg Patch.Td24) 14 mg TRANSDERMA DAILY PRN PRN Reason: smoking cessation Last Admin: 04/11/23 08:55 Dose: 14 mg Nicotine Polacrilex (Nicotine Polacrilex Lozenge 4 Mg Lozenge) 4 mg BUCCAL Q2H PRN PRN Reason: Nicotine Cravings Last Admin: 04/11/23 08:56 Dose: 4 mg Sodium Chloride (Sodium Chloride 0.65 % Nasal 44 Ml Sprbtl) 1 spray NOSTRIL-B Q1H PRN PRN Reason: Congestion Last Admin: 04/08/23 16:46 Dose: 1 spray Trazodone HCl (Trazodone Hcl 100 Mg Tablet) 100 mg PO BEDTIME PRN PRN Reason: insomnia Last Admin: 04/09/23 22:09 Dose: 100 mg Trazodone HCl (Trazodone Hcl 50 Mg Tablet) 50 mg PO BEDTIME MRX1 PRN PRN Reason: for continued Insomnia Last Admin: 04/10/23 22:08 Dose: 50 mg Allergies Allergies Allergy/AdvReac Type Severity Reaction Status Date / Time No Known Allergies Allergy Verified 07/08/22 11:03 Assessment & Plan Assessment & Plan (1) Medical clearance for psychiatric admission: Status: Acute Code(s): Z00.8 - Encounter for other general examination Plan P atient?is?a?37-year-old?female?with?history?of?mild?depression/anxiety,?opioid?a nd?cocaine?abuse?who?presents?with?paranoid Delusions?and?the?face?of?1st?time?manic?episode and cocaine abuse.? -discussed dx and pt agrees she has bipolar disorder; becoming more clear about delusions; discussed tx options - episode?seems?to?have?been?triggered?by?starting?Lexapro;?symptoms?worsened?by?c ocaine?abuse - 1st?ever?florid?manic?episode;?however?according?to?mother,?seems?to?be?history? of?shorter,?very?mild?episode -symptoms starting to subside, slept well last night; becoming more clear minding Hospital course: 04/03: Consider adding low dose seroquel for anxiety, insomnia and tendency to paranoia 04/04 Patient reports feeling much better. Has good insight into past paranoid/delusional thinking and understands that none of this was real. Further reflection she can see there a possible mild hypomanic episodes that she thinks she probably hid under her naturally outgoing, effusive personality. Patient tolerating medication well and reports sleeping and eating well. She very much wants to go to a substance abuse program which her family is helping set up. Discussed anxiety which remains and she will try clonidine to see if that helps in addition to hydroxyzine. Patient remains engaged in treatment, attending groups, pleasant to work with and forthcoming in 1 on 1 sessions and appropriate with peers and staff, in good behavioral and impulse control. 04/05Patient reports doing overall well. Continues to have anxiety and not sure that clonidine is helping that much; also not sure if trazodone is helping that much. Discussed lithium and subtherapeutic level. Given continued anxiety and some trouble sleeping, patient agreed to increase it to 900 mg. If she still can not sleep she will try increased dose of trazodone. Patient shared some of the struggles she has at home, feeling that everyone is always talking about her problems, that is the main topic of conversation all the time and that he gets overwhelming and can be belittling. No one else has to sit at a table where everyone talks about just their problems over and over... That said, she knows her family loves her and is concerned and anxious about her overcoming addiction, even if sometimes they can be misinformed on how to be helpful. Patient very much hoping to get into longer term program substance abuse and discussed options. Remains very engaged in treatment, forthcoming in 1 on 1 sessions, attending groups, appropriate with peers and staff and in good behavioral and impulse control. 118Continues to be engaged in treatment. Discussed relationships with family and and how they interact wine with her struggles with substance abuse. Slept better last night with trazodone. Remains engaged in treatment, attending groups, appropriate peers and staff. Given that she is newly on lithium and dose was raised, patient agrees to stay on unit longer so that kidney, thyroid function can be checked 04/08 patient continues to stabilize; tolerating medication. Discussing her anxieties, history, relationships, in a forthcoming, mature and self reflective way. Avoiding peer on the unit who has been provoking her and others 04/11 feeling good; patient sleeping and eating well, feeling calm, organized and considering treatment options. Patient is ambivalent about what would be best for her, going to a [facility] program verses going to an IOP and attending AA meetings daily. Patient is aware that she is very unlikely to get into a program by tomorrow discharge date and will thus most likely start IOP this Tuesday which she is looking forward to. Patient is navigating through family relationships and thinks that it is probably best she does not continue living at her parent's house; says she will likely go to live at her boyfriend's mother's house, where the to have lived in the past. -discussed labs, and elevated TSH likely due to lithium; patient understands medication side effect agrees to continue taking lithium saying she feels very stable on this medication. Agrees to start levothyroxine. Patient has remained in good behavioral and impulse control throughout her time on the unit; she has been engaged in treatment, attending groups, appropriate with peers and staff and future oriented, pursuing sobriety. Patient has aftercare plans set up and feels stable, safe and ready for discharge. While she remains at risk for relapse and mood dysregulation, She is not in imminent risk for harm to self or others and appropriate to continue treatment in the community. PLAN CV Q?15?minute?checks? Start levothyroxine 25 mcg daily -elevated TSH; free T4 WNL; will repeat lab at IOP Continue lithium?ER 900?mg?q.h.s.; tolerating well Continue clonidine p.r.n. for anxiety though patient not sure if helpful Trazodone 100 mg q.h.s. p.r.n. for insomnia; also 50 mg p.r.n. available for continued insomnia Reviewed medications risks/side effects which patient understands and with which agrees to continue Regarding [place], Risks, side-effects and benefits reviewed with pt, including, but not limited to, damage to kidneys and thyroid; pt was educated to stay hydrated, to watch for symptoms of lithium toxicity (also discussed, including but not limited to nausea, tremor, confusion) and the need to stay away from OTC NSAIDs (specifics reviewed) aside from Tylenol. Patient educated on: diagnosis, medication risk/benefits, substance abuse, therapeutic strategies and medical condition Informed Consent: understands Reason for continued inpatient stay Substantial Risk for: stable for discharge Time Spent With Patient Time: Total time managing care of this patient today ____ minutes.
[2023-04-11] MEDS: cloNIDine HCL 0.1 MG TABLET PO ×2 (13:57→22:49)
[2023-04-11 13:58] VITALS: BP 123/95
[2023-04-11] MEDS: Lithium Carbonate ER 450 MG TABLET.ER 900 MG PO (19:38)
[2023-04-11] MEDS: hydrOXYzine HCL 25 MG TABLET 75 MG PO (19:38)
[2023-04-11 21:15] VITALS: BP 118/78; PULSE 85; RESP 18; TEMP 36.1; O2SAT 98
[2023-04-11] MEDS: traZODone HCL 50 MG TABLET PO (22:48)
[2023-04-12] MEDS: Levothyroxine Sodium 25 MCG TABLET PO (05:53)
[2023-04-12 08:15] VITALS: BP 98/69; PULSE 72; RESP 16; TEMP 36; O2SAT 98
--- NOTE | 2023-04-12 08:44 | P.DS_ITS ---
DS: Providers Provider Date of Service: 04/12/23 Date of admission: 03/30/23 18:24 Date of discharge: 04/12/23 Primary care physician: Unknown Physician Attending physician on admission: Dipesh Bañuelos Consults: 03/31/23 12:02 Consult to Hospitalist Routine Comment: Consulting Provider: Hospitalist Reason For Exam: adm physical / paresthesia Attending physician on discharge: Dipesh Bañuelos DS: Diagnosis Discharge Diagnosis (1) Medical clearance for psychiatric admission: Status: Acute DS: Medications Discharge Medications Home Medications: Previous Rx's Medication Instructions Recorded clonidine HCl 0.1 mg tablet 0.1 mg PO Q4H PRN anxiety 30 days 04/12/23 #90 tabs fluticasone propionate 50 1 spray intranasal BID PRN 04/12/23 mcg/actuation nasal congested nares #0 grams spray,suspension hydroxyzine HCl 50 mg tablet See Rx Instructions .Route 04/12/23 .COMPLEX PRN anxiety 30 days #90 tabs levothyroxine 25 mcg tablet 25 mcg PO DAILY@0600 30 days #30 04/12/23 tabs lithium carbonate 450 mg 900 mg (2 x 450 mg) PO BEDTIME 30 04/12/23 tablet,extended release days #60 tabs loratadine 10 mg tablet 10 mg PO DAILY #0 tabs 04/12/23 nicotine (polacrilex) 4 mg buccal 4 mg buccal Q2H PRN Nicotine 04/12/23 lozenge Cravings 30 days #108 ea nicotine 14 mg/24 hr daily 14 mg transdermal DAILY PRN 04/12/23 transdermal patch smoking cessation 28 days #28 ea trazodone 100 mg tablet See Rx Instructions .Route 04/12/23 .COMPLEX PRN insomnia 30 days #45 tabs Mental Status Exam Mental Status Exam Narrative: Pt is alert and oriented; behavior is cooperative, friendly and calm; patient is not in distress; dressed in casual attire, well groomed; mood is described as good and affect congruent, appropriate, calm; eye contact appropriate; Speech normal rate, volume and prosody; no psychomotor agitation/retardation present; thought process is organized, linear and goal directed; Thought content is on treatment, aftercare, pursuing sobriety; otherwise pertinent to relevant topics; no delusional or paranoid ideations; denies any SI/HI. There is no evidence of perceptual disturbance. Patients insight and judgment fair. Data Data Completed and Pending Completed studies during hospitalization [Text1]: 04/05/23 04/10/23 10:26 07:21 BUN 16 Creatinine 0.84 Estim Creat Clear Calc TNP Estimated GFR > 60 TSH 8.90 H Free T4 0.76 Twilight 0.39 L 1.04 DS: Summary Hospital Course Hospital Course: HPI: Patient?is?a?37-year-old?female?with?history?of?mild?depression/anxiety,?opioid? and?cocaine?abuse?who?presents?with?paranoid Delusions?and?the?face?of?1st?time?manic?episode which was triggered by being started on Lexapro and worsened by cocaine abuse.?-1st?ever?floridly?manic?episode;?howeve r?according?to?mother,?seems?to?be?history?of?shorter,?very?mild?episode Patient?reports?that?for?the?past?several?weeks?she?has?been?worried?about Her?iPhone?iPad?being?hacked?and?being?followed?by?u nknown?people.??Patient?has?been?thinking?she?is?getting?messages Via?span?emails,?telling?her?to?get?out?of?the?house,?someone?following?her;?pat ient?has?been?worried?that?she?is?being?followed?as?sh e?drivesand?that?people?pulling?him?next?to?her?are?staring?at?her,?and?some?how ?a?part?of?this.?? At?1?point?patient?was?driving?her?car?and?thought?perhaps?someone Was?hiding?in?her?trunk.??Patient ?was?at?her?house?and?feeling?she?was?being?warned?to?get?out?of?her?house,?walk ed?up?the?street, Sat?on?a?neighbor's?property?who?called?911.??Patient?reports?that?about?3?weeks ?ago?she?was?started?on?Lexapro?which?was?increased?to?20?mg Which?she?abruptly?stopped?and which?coincided with?the?onset?of?manic?episode;?symptoms?included?little?need?for?sleep, Significantly?increased?libido,?racing?m ind,?paranoid?thinking,?auditory?hallucinations,?getting?messages?from?the?TV,?i ncreased?risky Behavior (started?doing?cocaine?at?least?every?other?day?were?formally?was?only?intermitt ently?using?on?the?weekends).?? Patient?says he?slept?for?the?1st?time?last?night?and?that?this?manic?episode?seems?to?be?win ding?down; she is now questioning her ability to discern what is real 1st delusional and is now realizing she has been paranoid.?? Patient has remained sober from opioids; no ETOH; Denies?history?of?trauma.??No?SI/HI Hospital course: On admission pt was polite, friendly and cooperative; she had mildly pressured speech and continued to have some paranoid ideations however by the time of admission, manic symptoms were starting to subside and her insight had increased and patient responded very well to reality testing. Patient was able to directly correlate the beginning of her manic symptoms with having got on Lexapro and having dose increased. Discussed diagnosis of bipolar disorder which she accepted and want to treatment. 04/04 Patient reports feeling much better. Has good insight into past paranoid/delusional thinking and understands that none of this was real. Further reflection she can see there a possible mild hypomanic episodes that she thinks she probably hid under her naturally outgoing, effusive personality. Patient tolerating medication well and reports sleeping and eating well. She very much wants to go to a substance abuse program which her family is helping set up. Discussed anxiety which remains and she will try clonidine to see if that helps in addition to hydroxyzine. Patient remains engaged in treatment, attending groups, pleasant to work with and forthcoming in 1 on 1 sessions and appropriate with peers and staff, in good behavioral and impulse control. 04/05Patient reports doing overall well. Continues to have anxiety and not sure that clonidine is helping that much; also not sure if trazodone is helping that much. Discussed lithium and subtherapeutic level. Given continued anxiety and some trouble sleeping, patient agreed to increase it to 900 mg. If she still can not sleep she will try increased dose of trazodone. Patient shared some of the struggles she has at home, feeling that everyone is always talking about her problems, that is the main topic of conversation all the time and that he gets overwhelming and can be belittling. No one else has to sit at a table where everyone talks about just their problems over and over... That said, she knows her family loves her and is concerned and anxious about her overcoming addiction, even if sometimes they can be misinformed on how to be helpful. Patient very much hoping to get into longer term program substance abuse and discussed options. Remains very engaged in treatment, forthcoming in 1 on 1 sessions, attending groups, appropriate with peers and staff and in good behavioral and impulse control. 118Continues to be engaged in treatment. Discussed relationships with family and and how they interact wine with her struggles with substance abuse. Slept better last night with trazodone. Remains engaged in treatment, attending groups, appropriate peers and staff. Given that she is newly on lithium and dose was raised, patient agrees to stay on unit longer so that kidney, thyroid function can be checked 04/08 patient continues to stabilize; tolerating medication. Discussing her anxieties, history, relationships, in a forthcoming, mature and self reflective way. Avoiding peer on the unit who has been provoking her and others 04/11 feeling good; patient sleeping and eating well, feeling calm, organized and considering treatment options. Patient is ambivalent about what would be best for her, going to a CSS program verses going to an IOP and attending AA meetings daily. Patient is aware that she is very unlikely to get into a program by tomorrow discharge date and will thus most likely start IOP this Tuesday which she is looking forward to. Patient is navigating through family relationships and thinks that it is probably best she does not continue living at her parent's house; says she will likely go to live at her boyfriend's mother's house, where the to have lived in the past. -discussed labs, and elevated TSH likely due to lithium; patient understands medication side effect agrees to continue taking lithium saying she feels very stable on this medication. Agrees to start levothyroxine. Patient has remained in good behavioral and impulse control throughout her time on the unit; she has been engaged in treatment, attending groups, appropriate with peers and staff and future oriented, pursuing sobriety. Patient has aftercare plans set up and feels stable, safe and ready for discharge. While she remains at risk for relapse and mood dysregulation, She is not in imminent risk for harm to self or others and appropriate to continue treatment in the community. Meds: Started levothyroxine 25 mcg daily for elevated TSH lithium?ER 900?mg?q.h.s.; clonidine p.r.n. for anxietyl Trazodone 100 mg q.h.s. p.r.n. for insomnia Time spent discussing smoking cessation with patient: 3 to 10 minutes Status at Discharge Functional status at discharge: independent ambulation Overall status at discharge: patient is back to baseline Time Spent with Patient Time attestation: Total time managing care of this patient today ____ minutes. Time spent: Greater than 30 minutes Discharge Plan Discharge Anticipated Discharge Date/Time: 04/12/23 11:30 Patient Disposition: Home, Self-Care Discharge Diagnosis: Bipolar I disorder, single manic episode, severe, in full remission Referrals: [facility] Intake: [facility] ([facility]) [Other] - 04/12/23 12:30 pm (PHP is Tuesday-Tuesday 9am-2pm. You will start the program on 04/13/23. The building is on the hospital campus, in the back of the Main hospital building. Follow the silver signs with blue writing for the [facility] (take a right after the ED, a left at the stop sign/crosswalk to [address] and the building is the brick building attached to the red trailer. Take the walkway between this building (on your right) and the speech and hearing building (which would be on your left). Once entering through the door, take a left to the PHP program. ) CSS Referral: [facility] [Other] - 1 Week (Press Option 1 for admissions; call daily to see if a bed is available. ) CSS Referral: [facility] [Other] - 1 Week (Press Option 1 for admissions and follow up daily to ask if a bed is available) TSS Referral: [facility] ([facility]) [Other] - 1 Week (Call to follow up daily to ask if a bed is available) CSS: [facility] [Other] - 1 Week (If you get [employer] insurance, you can refer yourself to [facility] in [place]. You can also try calling [facility] at [phone] or [phone]. ) CSS: [facility] [Other] - 1 Week (If you get [employer] insurance, you can call and refer yourself to [facility] ) Therapy Intake: Juliane Gutierrez ([facility]) [Other] - 04/18/23 10:00 am (Appointment is in person at the office in [place] ) Psych Prescriber: Bud Finley ([facility]) [Other] - 05/09/23 2:00 pm (Appointment is in person at the office in [place]) Blue Balbuena MD [Physician] - 04/20/23 10:30 am (previous appt. canceled . they will call us back or reach out to pr. for f/u appointment.) Discharge Medications: New loratadine 10 mg Tablet 10 mg PO DAILY Qty: 0 0RF clonidine HCl 0.1 mg tablet 0.1 mg PO Q4H PRN (Reason: anxiety) 30 Days Qty: 90 1RF hydroxyzine HCl 50 mg tablet See Rx Instructions .ROUTE .COMPLEX PRN (Reason: anxiety) 30 Days Qty: 90 1RF Rx Instructions: take 1 or 1.5 tabs TID as needed for anxiety lithium carbonate 450 mg tablet extended release 900 mg PO BEDTIME 30 Days Qty: 60 1RF nicotine (polacrilex) 4 mg lozenge 4 mg buccal Q2-4H PRN (Reason: nicotine cravings) 30 Days Qty: 108 1RF nicotine 14 mg/24 hr patch 24 hour 1 patch transdermal DAILY PRN (Reason: nicotine cravings) 28 Days Qty: 28 1RF trazodone 100 mg tablet See Rx Instructions .ROUTE .COMPLEX PRN (Reason: insomnia) 30 Days Qty: 45 1 RF Rx Instructions: take 1 or 1.5 tabs at bedtime as needed for insomnia Discontinued escitalopram oxalate 20 mg tablet 20 mg PO DAILY Discharge Orders: Discharge Order (Routine); Ordered 04/12/23 Ordered By: Dipesh Bañuleos Diet: Regular diet Activity on Discharge: As tolerated Stand Alone Forms: Patient Portal Discharge page, Community Support Other Ambulatory Orders: TSH reflex Free T4 (Routine) Timeframe: 1 Week Facility: [facility] - Location: Laboratory Ordered By: Dipesh Bañuelos Care Plan Goals: Maintain mood and safe behaviors Take medications as prescribed Continue to pursue sobriety Practice coping skills Continue with outpatient providers and reach out to them as needed Health Concerns: Mood stability and behaviors Sobriety Elevated TSH Plan of Treatment: Follow up with your PCP, psychiatric provider and other outpatient providers regarding above concerns Take medications as prescribed Assessment: Risk assessment at time of discharge:? Patient was interviewed prior to discharge and found to be fully oriented and without any SI or HI. Patient has improved insight and judgment and wants to continue treatment. Patient is not in imminent risk of harm to self or others and has a safety plan that includes presenting to the closest ER or calling 911 if feeling unsafe.? Patient has been observed closely by nursing and unit staff throughout admission; patient has not engaged in any behaviors that suggest dangerousness to self or others and has demonstrated appropriate behaviors and impulse control Discharge Date/Time: 04/12/23 11:45
[2023-04-12] MEDS: Loratadine 10 MG TABLET PO (08:51)
[2023-04-12] MEDS: hydrOXYzine HCL 25 MG TABLET 75 MG PO (08:52)
[2023-04-12] MEDS: guaiFENesin LA 600 MG TAB.ER.12H PO (08:52)
[2023-04-12] MEDS: Naloxone HCl Nasal TAKE HOME 4 MG SPRAY 8 MG NOSTRILALT (09:07)
[2023-04-12] MEDS: Fluticasone Propionate Nasal 16 GM SPRAY 1 SPRAY NOSTRIL-B (09:51)
== END 2023-04-12 11:45 | disposition home or self-care (01) | DRG 753 ==
PROVIDERS: Clinical Nurse Specialist Psychiatric/Mental Health, Adult; Admitting Provider Psychiatry & Neurology Psychiatry; Visit Provider Psychiatry & Neurology Psychiatry
DX: F31.13 Bipolar disorder, current episode manic without psychotic features, severe (principal); Z79.890 Hormone replacement therapy; Z79.899 Other long term (current) drug therapy
CPT/HCPCS: 36415; 80053; 80061; 80178; 82565; 82607; 82746; 83036; 83735; 84439; 84443; 84520

== ENCOUNTER → 2023-03-30 18:24 | Outpatient (BNV) | payer OTHER, SELFPAY | PROVIDERS: Admitting Provider Psychiatry & Neurology Psychiatry; Visit Provider Psychiatry & Neurology Psychiatry | DX: F31.2 Bipolar disorder, current episode manic severe with psychotic features (principal); F14.10 Cocaine abuse, uncomplicated | CPT/HCPCS: 90792; 99231; 99232; 99239 ==

== ENCOUNTER → 2023-03-30 18:24 | Outpatient (BNV) | payer OTHER, SELFPAY | PROVIDERS: Admitting Provider Psychiatry & Neurology Psychiatry; Visit Provider Student in an Organized Health Care Education/Training Program | DX: Z02.2 Encounter for examination for admission to residential institution (principal) | CPT/HCPCS: 99429 ==

== ENCOUNTER 2023-04-15 08:31 | Outpatient (REF) | payer OTHER, SELFPAY | END 2023-04-15 08:32 | disposition home or self-care (01) | LOC: HO.LAB 08:31 | PROVIDERS: Visit Provider Psychiatry & Neurology Psychiatry | DX: Z13.89 Encounter for screening for other disorder (principal) ==

== ENCOUNTER → 2023-04-15 11:45 | Outpatient (BNV) | payer OTHER, SELFPAY | PROVIDERS: Visit Provider Psychiatry & Neurology Psychiatry | DX: F31.89 Other bipolar disorder (principal); F14.21 Cocaine dependence, in remission | CPT/HCPCS: 90792; 99213 ==

== ENCOUNTER 2023-04-28 08:20 | Outpatient (REF) | payer OTHER, SELFPAY ==
[2023-04-28 09:21] LABS: Lithium < 0.10 mmol/L (0.60-1.20)
[2023-04-28 09:38] LABS: Anion Gap 13 (12-20); Blood Urea Nitrogen 18 mg/dL (9-16); Calcium 9.7 mg/dL (8.4-10.2); Carbon Dioxide 24 mmol/L (22-29); Chloride 104 mmol/L (96-108); Cholesterol 221 mg/dL (<200); Estimated Glomerular Filt Rate > 60; Glucose Random 106 mg/dL (60-115); HDL Cholesterol 80 mg/dL (>40); LDL Cholesterol Calculated 130 mg/dL (<100); Potassium 3.6 mmol/L (3.3-5.1); Sodium 137 mmol/L (135-145); Triglycerides 55 mg/dL (<150)
[2023-04-28 09:57] LABS: Free T4 (Free Thyroxine) 0.86 ng/dL (0.71-1.85); HCG Quantitative < 2 mIU/mL; Thyroid Stimulating Hormone 1.79 uIU/mL (0.32-4.0)
[2023-04-29 07:08] LABS: Triiodothyronine T3 Free 3.4 pg/mL (2.3-4.2)
[2023-04-29 11:03] LABS: Thyroid Peroxidase Antibodies <1 IU/mL (<9)
== END 2023-04-28 08:21 | disposition home or self-care (01) ==
LOC: HO.LAB 08:20
PROVIDERS: Visit Provider Psychiatry & Neurology Psychiatry
DX: F31.9 Bipolar disorder, unspecified (principal); Z79.899 Other long term (current) drug therapy
CPT/HCPCS: 36415; 80048; 80061; 80178; 84439; 84443; 84481; 84702; 86376

== ENCOUNTER 2023-05-04 12:36 | Outpatient (REF) | payer OTHER, SELFPAY ==
[2023-05-05 13:13] LABS: Amphetamine Screen Urine Not Detected (Not Detect); Barbiturates, Urine Not Detected (Not Detect); Benzodiazepines Screen Urine Not Detected (Not Detect); Cannabinoid Screen Urine POSITIVE (Not Detect); Cocaine Screen Urine POSITIVE (Not Detect); Fentanyl, urine Not Detected (Not Detect); Opiate Screen Urine Not Detected (Not Detect); Phencyclidine Screen Urine Not Detected (Not Detect)
== END 2023-05-04 12:37 | disposition home or self-care (01) ==
LOC: HO.LNP 12:36
PROVIDERS: Visit Provider Psychiatry & Neurology Psychiatry
DX: F11.21 Opioid dependence, in remission (principal)
CPT/HCPCS: 80307

== ENCOUNTER 2023-05-05 11:45 | Outpatient (RCR) | payer OTHER, SELFPAY ==
[2023-04-13 13:14] VITALS: BP 123/88; PULSE 100; TEMP 37.2
[2023-04-13 13:25] VITALS: BMI 18.5
--- NOTE | 2023-04-13 15:45 | PC.ADMIT ---
Patient is a 37 year old female who was referred to [facility] by [facility] inpatient behavioral health unit where she was admitted d/t mood instability. Patient reportedly experiencing paranoid thoughts, delusional content, AH and VH. See Integrative Assessment for more information. Patient initially went to [facility] ER and was transferred to [facility] inpatient unit. Patient reports using cocaine for the last six months. Initially was using on the weekends then progressed to using daily for the past several weeks prior to hospitalization. She reports she would go without sleep for several days at a time. Reports last use was prior to going into the hospital on 03/28/23. Patient also has a history of opiate use snorting heroin and opiate pills however reports she has been sober for the past 5 years from opiates. She reports she was on MAT with Methadone however no longer takes this and does not want to use MAT at this time. Patient however is interested in a [facility] recovery operator and has an intake appointment with [facility] on 04/14/23 at 2:00 pm. Patient also has several calls out to substance use CSS and [facility] treatment centers and is awaiting a bed to open at various residential facilities that take her insurance. Patient is alert and oriented x4. Calm and cooperative. Denied SI. AH, VH, or paranoid thoughts. Thoughts are clear and goal oriented and does not appear to be responding to any internal stimuli. Medications reconciled with patient and patient's discharge paperwork form inpatient unit. She reports taking medications as prescribed however did not receive Levothyroxine from pharmacy. Dr Bañuelos from inpatient aware and is sending a prescription to the pharmacy. Patient is aware. She reports she is taking short term disability and [employer] leave. She is working in sales. Parents who she lives with are supportive.
--- NOTE | 2023-04-14 17:43 | HO.PHP ---
The client's case was reviewed and opened in treatment team.
--- NOTE | 2023-04-14 21:36 | HO.PS.ADMBH ---
HPI Date of Service: 04/14/23 Chief Complaint: bipolar Sources of Information: patient interviewed, chart reviewed and crisis/core team assessment reviewed HPI Narrative: Moriah is a 37 year old female with a history of polysubstance dependence who is being stepped down from inpatient after being admitted for acute psychosis and rom related to heavy cocaine use. She has limited psychiatric treatment history prior to inpatient hospitalization. She reports a long history of opioid dependence in remission and had been on agonist therapy until stopping methadone treatment 4 months ago. She reports developing cocaine addiction over the past several months in the setting of worsening depression and anxiety since the beginning of the year, citing a series of losses of close family members and friends earlier in the year and compounded by relationship stressors involving her boyfriend of 18 years who also struggles with mental health issues and active addiction. She was admitted to [facility] with symptoms of acute rom, insomnia, significant weight loss, experiencing auditory and visual hallucinations, and paranoid delusions that she was being monitored through her phone and other forms of technology. She reports cocaine use which initially limited to weekends, by last month she was using constantly on a daily basis in the weeks leading up to [facility]. She denies any substance use since being discharged from hospital. She reports 15 lbs weight gain in the 2 weeks she was inpatient, she is still 10-15 lbs below her baseline weight, but appetite has recovered. She was started on lithium during inpatient and has been reportedly feeling well. Mood is very good, she is feeling stable. Has been tolerating lithium without issue. No further psychotic symptoms since IP admission and cocaine use cessation. She denies any AH, VH. She has insight into the illness, looking back now she appreciates how paranoid and delusional her thinking was. She says the experience was terrifying and hopes never to experience psychosis again. Since discharge she has been compliant with medications and has not had any urges to use since she was discharged. She denies any cocaine cravings or any illicit substance use in the interim. Her boyfriend has since been staying with his own mother who is enabling his behaviors and does not believe he should seek mental health treatment, which further complicates the relationship between her and boyfriend. She and her boyfriend had been living with her mother for the past several months until she was hospitalized. Her mother does not trust her to return home yet, but they are reportedly working on their relationship and she anticipates her mother will allow her back home. Her mother does not want the boyfriend returning to live at the house. Current Medications: [place] ER 900 mg qHS trazodone 100-150 mg qhs hydroxyzine 25 mg TID prn anxiety clonidine 0.1 mg qd prn anxiety (somatci) levothyroxine 25 mg qd CLaritin 10 mg qd Not currently on control Last lithium level was therapeutic, 1.02 on 04/08/2023 Past Psychiatric History: IPLOC x 1 to [facility] 02/2023 No previous PHP admissions CD trtmt: IOP at [facility]. Methadone clinic through [facility] x 5 yrs until 11/2022 No?history?of?suicidality,?attempts Denies hx of SIB, denies hx of aggression Says she was previously on Lexapro and hydroxyzine in the past by her PCP No hx of OP psychiatrist or therapist Medical Evaluation Reviewed: Yes [facility] Medical History (Updated 04/14/23 @ 22:39 by Lilliam Ramos MD) Opioid dependence on agonist therapy Cocaine use disorder Cervical intraepithelial neoplasia grade 3 Narcotic addiction Chronic headaches Snoring Narrative: Weight loss: She started experiencing some weight loss earlier in the year; her PCP had initial concerns about hyperthyroidism, however she started using cocaine later in the spring which further hastened the weight loss. During hospitalization her TSH was found to be elevated and she was started on levothyroxine for hypothyroidism. Weight was 91 lbs on IP admission, 106 lbs on discharge. Her previous baseline weight ~120 lbs. Dyslipidemia: noted on recent labwork. No prior dx. Will recheck. Patient sexually active, not currently on control. No hx of surgeries, seizures or concussions Nulligravid G0 LMP: 4 days ago Ht: 5'2 Wt: 106 Surgical History H/O LEEP Narrative: for UMESH III, Family History: Depression and anxiety in both bio sisters, older sister dx Bipolar. Other sister with ADHD. Denies addiction in family. No FH suicides Social History: Currently in a hotel, while sorting out plans with her mother. Patient and BF had been living at her mother's house since early this year. Prior to 2022, she lived at her BF's mother's house with her BF for many years. 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 Born in [place], [place]. Parents when she was 6, she moved to [place] with her mother. She reports having 3 sisters and 3 brothers (including step-siblings) She has 2 biological sisters (she is the middle child). Primary supports: she reports having close relationships with both her mother/stepfather who live in [place] as well as her father/stepmother who live in [place]. Substance History: Opioid use: started years ago after her BF was rxed oxycodone for a hockey injury 10 years ago. Prescription med abuse evolved to nasal heroin use. Denies IVDA. In recovery x 5 yrs on methadone, quit methadone 11/2022. Denies further opioid use. Previously trialed buprenorphine but wasn't helpful. Cocaine use: started early 2022, increasing frequency, dependence. Last use prior to IP admission Hallucinogen use: marijuana, rarely, causes paranoia and anxiety, last used > 6 weeks ago. Now actively avoiding Nicotine use: sporadic, limited to this past summer Caffeine: drinks tea Trauma History: denies Diagnostics Vital Signs (24Hr): BMI result Body Mass Index 18.5 Meds/Allergies Meds Home Medications Medication Instructions Recorded Confirmed Type fluticasone propionate 50 1 spray intranasal BID PRN Sinus 04/13/23 04/13/23 History mcg/actuation nasal Symptoms spray,suspension Allergies Allergies Allergy/AdvReac Type Severity Reaction Status Date / Time No Known Allergies Allergy Verified 07/08/22 11:03 Mental Status Exam Mental Status Exam Narrative: Alert, oriented, in no acute distress. Well-developed. No tics, tremors or psychomotor agitaiton or neurovegetative retardation. Calm, pleasant, well-related. Eye contact good. Mood is good, affect bright, reactive, without expansiveness, irritability or lability. Speech normal without pressure or latency. Thought process goal-directed. Thought content future-oriented, relevant to stressors. No evidence of psychosis. No perceptual disturbance. Cognition grossly intact. Sensorium clear. Attends well to conversation. Insight/judgment fair to good. Assessment & Plan Assessment & Plan (1) Other bipolar disorders: Status: Acute Code(s): F31.89 - Other bipolar disorder (2) Cocaine use disorder, severe, in early remission, dependence: Status: Acute Code(s): F14.21 - Cocaine dependence, in remission Plan Admit to [facility] continue medications lab slip to repeat TFTs, as well as lipid lanel (?dyslipiedmia noted on previous labs) check [place] level (though is AM level, not trough - takes HS dose of Li) continue to monitor Patient educated on: diagnosis, medication risk/benefits and substance abuse Informed Consent: understands Reason for continued partial hosp. stay Substantial Risk for: rapid decompensation and med/psych decompensation Certification I certify that partial hospital treatment is medically necessary due to the symptoms and problems resulting from the patient's mental illness and the failure to treat the patient at the partial hospital level of care would likely result in the patient requiring inpatient psychiatric care which could not be prevented at a less intensive level of care. Time Spent With Patient Time: Total time managing care of this patient today __60__ minutes.
--- NOTE | 2023-04-19 21:38 | HO.PHPPROGNO ---
Subjective Subjective Date of Service: 04/19/23 Reason For Visit: bipolar Interim History: Moriah is back home now with her mother and stepdad; the hotel was expensive and her parents had been covering the cost. She is scheduled for intake at [facility] for therapy on May 05, and for psychiatric appointment for May 09. She has a routine PCP appointment tomorrow and will ask about control/OCP options especially now that she is on lithium. She was given a lab slip at our last appointment and plans to get these done tomorrow AM. She shares more details about her experiences during the manic episode, namely focusing on psychotic symptoms - visual hallucinations, paranoia and delusional thinking which went on for several weeks prior to her family noticing problems. She says the experience was terrifying and is committed to treatment and recovery because she never wants to experience any of these symptoms again. Currently she is doing well, she denies any aberrant thoughts, paranoia or hallucinosis. She reports mood is euthymic, some lingering anxiety about relevant stressors, anxiety is manageable. She denies any hopelessness or SI. Denies any aggressive ideation. Denies any cravings or urges to use. Sleep and appetite are intact. She is starting to fill out her clothes again and believes her weight must be back to normal. Physically she feels well. Her boyfriend has been working on his addiction and mental health issues in [facility], and is leaning on his [id number] who has been in recovery for 20 years, for support and guidance. She is on FMLA and short-term disability through her job; her employer has been supportive and is not expecting her back to work until May 2023. Medication Compliance: Yes Side effects from medications: No Attending Groups: Yes Review of Systems Acute medical concerns: No Mental Status Exam Mental Status Exam Narrative: Alert, oriented, in no acute distress. Well-developed. No tics, tremors or psychomotor agitaiton or neurovegetative retardation. Calm, pleasant, well-related. Eye contact good. Mood is good, affect bright, reactive, without expansiveness, irritability or lability. Speech normal without pressure or latency. Thought process goal-directed. Thought content future-oriented, relevant to stressors. No evidence of psychosis. No perceptual disturbance. Cognition grossly intact. Sensorium clear. Attends well to conversation. Insight/judgment fair to good. Diagnostics Vital Signs (24Hr): BMI result Body Mass Index 18.5 Assessment & Plan Assessment & Plan (1) Other bipolar disorders: Status: Acute Code(s): F31.89 - Other bipolar disorder (2) Substance-induced psychotic disorder with delusions: Status: Acute Code(s): F19.950 - Other psychoactive substance use, unspecified with psychoactive substance-induced psychotic disorder with delusions Assessment and Plan: compensated, no further substance use (3) Cocaine use disorder, severe, in early remission, dependence: Status: Acute Code(s): F14.21 - Cocaine dependence, in remission (4) Opioid dependence in remission: Status: Acute Code(s): F11.21 - Opioid dependence, in remission Plan pending lab work to check TFTs, Li level, BMP continue with medications without change for now continue PHP Patient educated on: diagnosis, medication risk/benefits and substance abuse Informed Consent: understands Reason for contiued partial hosp. stay Substantial Risk for: rapid decompensation and med/psych decompensation Certification I certify that partial hospital treatment is medically necessary due to the symptoms and problems resulting from the patient's mental illness and the failure to treat the patient at the partial hospital level of care would likely result in the patient requiring inpatient psychiatric care which could not be prevented at a less intensive level of care. Total time managing care of this patient today __30__ minutes. Discharge Plan Discharge Attending provider: Lilliam Ramos Medications: Continued clonidine HCl 0.1 mg tablet 0.1 mg PO Q4H PRN (Reason: anxiety) 30 Days Qty: 90 1RF hydroxyzine HCl 50 mg tablet See Rx Instructions .ROUTE .COMPLEX PRN (Reason: anxiety) 30 Days Qty: 90 1RF Rx Instructions: take 1 or 1.5 tabs TID as needed for anxiety lithium carbonate 450 mg tablet extended release 900 mg PO BEDTIME 30 Days Qty: 60 1RF trazodone 100 mg tablet See Rx Instructions .ROUTE .COMPLEX PRN (Reason: insomnia) 30 Days Qty: 45 1RF Rx Instructions: take 1 or 1.5 tabs at bedtime as needed for insomnia levothyroxine 25 mcg capsule 25 mcg PO DAILY 30 Days Qty: 30 1RF fluticasone propionate 50 mcg/actuation [place],Suspension 1 spray INTRANASAL BID PRN (Reason: Sinus Symptoms) Patient Comments: On patient's copy of discharge paperwork given to her upon discharge from inpatient unit. Rx Instructions: administer into each nostril loratadine 10 mg tablet 10 mg PO DAILY 30 Days Qty: 30 0RF Discontinued nicotine (polacrilex) 4 mg lozenge 4 mg buccal Q2-4H PRN (Reason: nicotine cravings) 30 Days Qty: 108 1RF nicotine 14 mg/24 hr patch 24 hour 1 patch transdermal DAILY PRN (Reason: nicotine cravings) 28 Days Qty: 28 1RF
--- NOTE | 2023-04-25 20:36 | P.PNPSP_ITS ---
Subjective Subjective Date of Service: 04/25/23 Reason For Visit: bipolar Interim History: Patient seen for follow-up today. No acute issues or concerns. She discussed Thanksgiving, family dynamics, with sister who wouldn't extend Thanksgiving invitation to Moriah, so ultimately her other siblings and parents chose to stay with Moriah for the holiday. She also was allowed to see her BF for a visit. She feels her family is noticing that she is doing better and she has been feeling better and has been trying to stay more active and avoid isolating. It has been tough not having a car (she usually uses the [employer] car). She is eager to go to a hockey game in [place] with her BF and was able to convince her mother to drive them. She appreciates the need to build trust with her family again. They have been supportive. But she hope in time she will regain her independence without much strain on her family relationships. Her mood is euthymic. No hopelessness or SI. Energy okay, she was feeling tired after taking the lithium, although this has mostly resolved. She has been sleeping 6-8 hours. Denies any alcohol or substance use. Denies any cocaine cravings or urges to use. She appears bright, energetic and slightly activated. Her weight has normalized, remains at weight well below her baseline weight (she shared a photo from a year ago). She had a PCP appointment so brought the lab slip in and asked PCP to order. Received fax from PCP office, only sent over LFTs and TSH. TSH 1.71. Patient will call PCP office to see if other labs were done (lithium level, renal fxn/CMP) If not, patient will need to repeat lab work here. we discussed stopping the levothyroxine - she was started on this in the hospital d/t one-time elevated TSH, which was not rechecked. No hx of s/s of hypothyroidism (mild fatigue 2/t lithium has resolved) and in fact patient had been experiencing significant weight loss, anxiety, insomnia, hair loss since start of the year -3 months prior to cocaine use (even now she has recovered only some of the weight loss) At the time she had followed up with her doctor who had concerns for overactive thryoid. At this point I am more concerned about pt potentially getting over-activated if she remains on levothyroxine. Will plan to discontinue and have PCP recheck thyroid function in a couple of months or earlier if symptomatic. Medication Compliance: Yes Side effects from medications: No Attending Groups: Yes Review of Systems Acute medical concerns: No Mental Status Exam Mental Status Exam Narrative: Alert, oriented, in no acute distress. Calm, pleasant, actively engaged. Eye contact good. Mood is good, affect bright, reactive, without expansiveness, irritability or lability. Speech normal without pressure. Thought process goal- directed. Thought content future-oriented, relevant to stressors/flight into health. No evidence of psychosis. No perceptual disturbance. Cognition grossly intact. Sensorium clear. Attends well to conversation. Insight/judgment fair to good. Diagnostics Vital Signs (24Hr): BMI result Body Mass Index 18.5 Assessment & Plan Assessment & Plan (1) Other bipolar disorders: Status: Acute Code(s): F31.89 - Other bipolar disorder (2) Substance-induced psychotic disorder with delusions: Status: Acute Code(s): F19.950 - Other psychoactive substance use, unspecified with psychoactive substance-induced psychotic disorder with delusions (3) Cocaine use disorder, severe, in early remission, dependence: Status: Acute Code(s): F14.21 - Cocaine dependence, in remission (4) Opioid dependence in remission: Status: Acute Code(s): F11.21 - Opioid dependence, in remission Plan Reviewed labwork from PCP office (incomplete) Pending remaining lab work - Last Li level 1.02 (not clear if this was a true trough level, will get AM labs done again to compare) discontinue levothyroxine 25 mcg continue other regular medications Patient educated on: diagnosis, medication risk/benefits and substance abuse Informed Consent: understands Reason for contiued partial hosp. stay Substantial Risk for: rapid decompensation and med/psych decompensation Certification I certify that partial hospital treatment is medically necessary due to the symptoms and problems resulting from the patient's mental illness and the failure to treat the patient at the partial hospital level of care would likely result in the patient requiring inpatient psychiatric care which could not be prevented at a less intensive level of care. Total time managing care of this patient today _30___ minutes. Discharge Plan Discharge Attending provider: Lilliam Ramos Medications: Continued clonidine HCl 0.1 mg tablet 0.1 mg PO Q4H PRN (Reason: anxiety) 30 Days Qty: 90 1RF hydroxyzine HCl 50 mg tablet See Rx Instructions .ROUTE .COMPLEX PRN (Reason: anxiety) 30 Days Qty: 90 1RF Rx Instructions: take 1 or 1.5 tabs TID as needed for anxiety lithium carbonate 450 mg tablet extended release 900 mg PO BEDTIME 30 Days Qty: 60 1RF trazodone 100 mg tablet See Rx Instructions .ROUTE .COMPLEX PRN (Reason: insomnia) 30 Days Qty: 45 1RF Rx Instructions: take 1 or 1.5 tabs at bedtime as needed for insomnia levothyroxine 25 mcg capsule 25 mcg PO DAILY 30 Days Qty: 30 1RF fluticasone propionate 50 mcg/actuation [place],Suspension 1 spray INTRANASAL BID PRN (Reason: Sinus Symptoms) Patient Comments: On patient's copy of discharge paperwork given to her upon discharge from inpatient unit. Rx Instructions: administer into each nostril loratadine 10 mg tablet 10 mg PO DAILY 30 Days Qty: 30 0RF Discontinued nicotine (polacrilex) 4 mg lozenge 4 mg buccal Q2-4H PRN (Reason: nicotine cravings) 30 Days Qty: 108 1RF nicotine 14 mg/24 hr patch 24 hour 1 patch transdermal DAILY PRN (Reason: nicotine cravings) 28 Days Qty: 28 1RF Telehealth Telehealth Location of provider rendering services: other (private office) Location of patient: other ([facility]) Patient Identification confirmed using: Name, : Yes Telehealth method: video Patient verbally consented to treatment: Yes
--- NOTE | 2023-04-27 08:46 | HO.PHP ---
[facility] staff member reached out to Moriah due to her leaving a voicemail for the admin calling out sick. [facility] staff member explored with her what was occurring. Moriah disclosed that she had a headache last night and still has it this morning, in which it is making her nauseas. Moriah disclosed that she is safe and reported no concerns. Moriah will be here tomorrow if feeling better.
--- NOTE | 2023-04-27 09:46 | PC.NURSE ---
I spoke to Moriah who called out today. She reports having a migraine headache and nausea. Reports history of migraines. She has outstanding lab work due including [place] level. She stated she has the lab order slip and will complete tomorrow morning before the program.
--- NOTE | 2023-04-28 17:21 | HO.PHP ---
[facility] staff followed up with Moriah after group three since she was emotional around the family dynamics and comments that were being made with her being honest around her relapse. Moriah disclosed that she had blocked her sister because she needs to set boundaries with them. [facility] staff member was receptive and explored with Moriah if she is feeling unsafe at home. Moriah mentioned that her family members are not physically aggressive but the environment is too toxic for her to be living at and working on sobriety. [facility] staff member was receptive and informed Moriah that she could provide her with housing information and resources if needed. Moriah was in agreement. PHP staff member also explored additional supports Moriah can reach out to if she needs somewhere to stay tonight. Moriah expressed if she doesn't have anywhere to go tonight she will go to a hotel but is aware of some supports. Moriah and [facility] staff member discussed engaging in the 30 day treatment program. Moriah is still thinking about if she would like to do that. Moriah reported no safety concerns and expressed excitement with going to [place]. Moriah will be returning to program Tuesday since she is not scheduled tomorrow for an appointment.
--- NOTE | 2023-05-02 18:20 | HO.PHPPROGNO ---
Subjective Subjective Date of Service: 05/02/23 Reason For Visit: bipolar Interim History: Patient seen for follow-up today. No acute issues or concerns. Tearful today, says it has been stressful at home, especially following relapse last week. Wanting more independence but also recognizes need for her parents' support. Feels particularly isolated because she is on leave from work still and does not have access to a car. She cites the isolation as reason for relapse last week on . She denies any further substance use since. SHe was very tearful and labile during our discussion. She reports being more overwhelmed, than depressed. In fact she doesn't feel she is depressed, but more so just frustrated with feeling stuck . She denies any hopelessness or SI. She is trying to stay positive and says she recognizes need for treatment and getting herself together, so she can recover her independence. We discuss lithium she says she is still taking the lithium, but admits she is not consistent with it. She says the lithium makes her tired and sometimes was falling asleep without taking it. She feels there may have been 2 or 3 days in a row where she did not take it. She suspects she did not take the medication in the days around relapse bc she was with her BF. Labs were drawn on . We review recent lab work which demonstrates virtually no lithium detected. ALso HcG was negative which she was relieved about for now. I suppose it is possibly to have such a low read after missing 3 days, but her last Li level was 1.09. I encourage her to restart the lithium, and now that the levothyroxine has been discontinued (less chance for getting overactivated by thyroid hormone). hopefully a lower dose of lithium will be adequate for stabilizing mood at 450 CR which patient is more agreeable to taking, and she is optimistic she will be better able to maintain regular dosing. We discussed some strategies to that might be helpful. Sleep, appetite intact. NO helpelssness, hopelessness or SI. . Mental Status Exam Mental Status Exam Narrative: Alert, oriented, in no acute distress. Calm, pleasant, actively engaged. Eye contact good. Mood is stressed, affect superficially bright, some lability and tearfulness, mood congruent. Speech normal without pressure. Thought process preoccupied without perseveration. No FOI/FRANKIE. Thought content future-oriented, relevant to stressors/flight into health. No evidence of psychosis. No perceptual disturbance. Cognition grossly intact. Sensorium clear. Attends well to conversation. Insight/judgment fair. Diagnostics Vital Signs (24Hr): BMI result Body Mass Index 18.5 Assessment & Plan Assessment & Plan (1) Other bipolar disorders: Status: Acute Code(s): F31.89 - Other bipolar disorder (2) Cocaine use disorder, severe, in early remission, dependence: Status: Acute Code(s): F14.21 - Cocaine dependence, in remission (3) Opioid dependence in remission: Status: Acute Code(s): F11.21 - Opioid dependence, in remission Plan will lower dose of lithium ER to 450 mg qHS, to improve compliance encouraged to set safeguards, perhaps engaging support from parents, or setting reminders for taking her medications will recheck labs on Tuesday AM Patient educated on: diagnosis, medication risk/benefits and substance abuse Informed Consent: understands Reason for contiued partial hosp. stay Substantial Risk for: harm to self Certification I certify that partial hospital treatment is medically necessary due to the symptoms and problems resulting from the patient's mental illness and the failure to treat the patient at the partial hospital level of care would likely result in the patient requiring inpatient psychiatric care which could not be prevented at a less intensive level of care. Total time managing care of this patient today _30___ minutes. Discharge Plan Discharge Attending provider: Lilliam Ramos Medications: Continued clonidine HCl 0.1 mg tablet 0.1 mg PO Q4H PRN (Reason: anxiety) 30 Days Qty: 90 1RF hydroxyzine HCl 50 mg tablet See Rx Instructions .ROUTE .COMPLEX PRN (Reason: anxiety) 30 Days Qty: 90 1RF Rx Instructions: take 1 or 1.5 tabs TID as needed for anxiety lithium carbonate 450 mg tablet extended release 900 mg PO BEDTIME 30 Days Qty: 60 1RF trazodone 100 mg tablet See Rx Instructions .ROUTE .COMPLEX PRN (Reason: insomnia) 30 Days Qty: 45 1RF Rx Instructions: take 1 or 1.5 tabs at bedtime as needed for insomnia levothyroxine 25 mcg capsule 25 mcg PO DAILY 30 Days Qty: 30 1RF fluticasone propionate 50 mcg/actuation [place],Suspension 1 spray INTRANASAL BID PRN (Reason: Sinus Symptoms) Patient Comments: On patient's copy of discharge paperwork given to her upon discharge from inpatient unit. Rx Instructions: administer into each nostril loratadine 10 mg tablet 10 mg PO DAILY 30 Days Qty: 30 0RF Discontinued nicotine (polacrilex) 4 mg lozenge 4 mg buccal Q2-4H PRN (Reason: nicotine cravings) 30 Days Qty: 108 1RF nicotine 14 mg/24 hr patch 24 hour 1 patch transdermal DAILY PRN (Reason: nicotine cravings) 28 Days Qty: 28 1RF Telehealth Telehealth Location of provider rendering services: other (private office) Location of patient: other ([facility]) Patient Identification confirmed using: Name, : Yes Telehealth method: video Patient verbally consented to treatment: Yes
--- NOTE | 2023-05-03 15:29 | HO.PHP ---
[facility] staff followed up with Moriah at the end of the last group due to Moriah appearing detached towards the end of group. Moriah had mentioned that she is okay but struggling with the family situation, the holidays coming up, and continuing with treatment after this program. Moriah had talked about her family impacting her mental health and how her parents stated after her last day in program, they no longer will be providing her with transportation. PHP staff and Moriah explored other living situations since she feels her mental health is being impacted in the current environment she is in. Moriah disclosed that she has people she could ask but it makes her feel as though she is a burden to others. Moriah also noted that she does not want to start treatment during the holidays because she wants to be around during that time. Moriah stated she is currently on 20 wait list. [facility] staff suggested continuing with [facility] program. Moriah was in agreement. Moriah disclosed no concerns around safety and will be at the program tomorrow.
== END 2023-05-05 23:59 | disposition home or self-care (01) ==
LOC: HO.PHPA 11:45
PROVIDERS: Visit Provider Psychiatry & Neurology Psychiatry
DX: F31.89 Other bipolar disorder (principal); F19.950 Other psychoactive substance use, unspecified with psychoactive substance-induced psychotic disorder with delusions; F14.21 Cocaine dependence, in remission; F11.21 Opioid dependence, in remission; Z79.899 Other long term (current) drug therapy
CPT/HCPCS: 90791; 90853